=== PATIENT | female | born 1990 | race Caucasian/White ===

== ENCOUNTER 2022-07-11 10:46 | Outpatient (CLI) | payer OTHER, SELFPAY ==
--- NOTE | 2022-07-11 11:00 | CT_ITS ---
WS: [id number] CT ABDOMEN PELVIS TECHNIQUE: Noncontrast CT of the abdomen and pelvis with coronal and sagittal reformatted images. CLINICAL INFORMATION: Hematuria with Right Flank pain, COMPARISON: 8 10,015 DLP: 751.[address] scans at [facility] use at least one of these dose optimization techniques: automated e xposure control; mA and/or kV adjustment per patient size (includes targeted exams where dose is matc hed to clinical indication); or iterative reconstruction. FINDINGS: Lung bases are well aerated. Prior LEFT nephrectomy or congenital absence LEFT kidney. Mild RIGHT hyd ronephrosis with RIGHT ureterectasis. RIGHT ureter is dilated into the pelvis with a transition point to normal caliber. This is not well visualized distally. No visualized obstructing renal or ureteral calculi. This can be further evaluated with CT urogram or ureteroscopy. Enlarged heterogeneous bicornate uterus. Multifollicular ovaries RIGHT greater than LEFT. Small amoun t of free fluid in the pelvis. No evidence of high-grade small or large bowel obstruction. Appendix RIGHT lower quadrant appears dec ompressed and normal. Fat-containing umbilical hernia. Normal caliber abdominal aorta. IMPRESSION: 1. Prior LEFT nephrectomy or congenital absence LEFT kidney. 2. Mild RIGHT hydronephrosis with dilated RIGHT renal pelvis and ureter. Ureter is dilated into the pelvis with transition to normal caliber at the pelvic brim. No visualized obstructing renal or urete ral calculi. Obstruction may be due to stricture or external compression. This could be further evalu ated with CT urogram or ureteroscopy. 3. Normal appendix in RIGHT lower quadrant. No evidence of acute appendicitis. 4. Bicornuate lobulated uterus. 5. Small amount of free fluid in the pelvis. 6. No other acute findings.
== END 2022-07-11 10:47 | disposition home or self-care (01) ==
PROVIDERS: PCP Family Medicine; Visit Provider Family Medicine
DX: R31.9 Hematuria, unspecified (principal); R10.9 Unspecified abdominal pain; Z90.5 Acquired absence of kidney; N13.30 Unspecified hydronephrosis
CPT/HCPCS: 74176; 80053; 81003; 85025

== ENCOUNTER 2022-07-17 07:58 | Outpatient (CLI) | payer OTHER, SELFPAY ==
--- NOTE | 2022-07-17 08:16 | NM_ITS ---
WS: [id number] NUCLEAR MEDICINE RENAL FLOW STUDY INDICATION: RIGHT flank pain COMPARISON: CT July 11, 2022 TECHNIQUE: Nuclear medicine renal flow study with 11.6 mCi technetium 99m DTPA FINDINGS: Absent LEFT kidney. Normal GFR in the RIGHT kidney. Normal renal perfusion on the initial i maging with rapid radiotracer uptake. RIGHT hydronephrosis similar to the recent CT with dilatation R IGHT renal pelvis. Small amount of initial emptying prior to diuretic administration. Rapid emptying post diuretic demonstration with moderate retained radiotracer activity on the 30 minute images. Norm al filling of the bladder. No other suspicious findings. NM/NM renal flow w pharm [id number] IMPRESSION: 1. Absent LEFT kidney. 2. Normal GFR RIGHT kidney with normal rapid renal perfusion. 3. Persistent RIGHT hydronephrosis appears stable. 4. Rapid partial excretion post diuretic administration with moderate retained radiotracer activity on the 30 minute images. Findings compatible with incompl ete emptying. 5. Normal bladder filling post diuretic administration.
== END 2022-07-17 07:59 | disposition home or self-care (01) ==
PROVIDERS: PCP Family Medicine; Visit Provider Urology
DX: N13.30 Unspecified hydronephrosis (principal); Z90.5 Acquired absence of kidney
CPT/HCPCS: 78708; A9539; J1940

== ENCOUNTER → 2022-07-29 14:26 | Outpatient (BNVA) | payer OTHER, SELFPAY | PROVIDERS: PCP Family Medicine; Visit Provider Urology | DX: N13.30 Unspecified hydronephrosis (principal); Q60.0 Renal agenesis, unilateral | CPT/HCPCS: 81003 ==

== ENCOUNTER 2022-08-05 06:44 | Day surgery (SDC) | payer OTHER, SELFPAY ==
--- NOTE | 2022-08-02 11:36 | ANES.PREANE2 ---
Pre-Anesthetic Assessment Height/Weight: Height 1.68 m Operation Date: 08/05/22 09:30 Proposed Procedures p Cystoscopy, right, retrograde, ureteroscopy, dilation, stent [id number],[id number](Not Applicable) - Lico Cota MD s Retrograde Pyelogram(Right) - MD manuel Mendez Ureteroscopy(Right) - MD manuel Mendez Urethral Dilation(Right) - Lico Cota MD s Ureteral Stent Placement(Right) - Lico Cota MD Familial anesthetic complications: Had a high spinal - Patient had a nephrostomy tube while - for some reason she wasn't extubated post procedure and she awoke, intubated, on the bed, while being driven down the hallway. They ended up putting her on a fentanyl drip for 4 days. She also says she's woken during previous cystoscopies and watched the screen Social No alcohol and No tobacco Exam alert, oriented x 3, clear to auscultation bilaterally and regular rate & rhythm Airway Dentition: full CV/HEM high resting heart rate solitary kidney Neuropsych menierre's disease Anesthetic Plan ASA status: 2 Anesthesia: General Risk of > 500 ml blood loss (7ml/kg in children): No Medications/Allergies Home Medications Medication Instructions Recorded Confirmed Last Taken Type hydrocodone 5 mg-acetaminophen 325 1 tab PO Q6H PRN pain 5 days #20 07/11/22 08/02/22 Unknown Rx mg tablet tabs promethazine 25 mg rectal 25 mg HI Q6H PRN sedation #6 ea 07/11/22 08/02/22 Unknown Rx suppository tramadol 50 mg tablet 50 mg PO Q8H PRN pain #20 tabs 07/16/22 08/02/22 Unknown Rx ondansetron HCl 4 mg tablet 4 mg PO Q8H PRN Nausea 07/29/22 08/02/22 Unknown History Allergies Allergy/AdvReac Type Severity Reaction Status Date / Time Penicillins Allergy Severe ALGY-Anaphy Verified 07/29/22 14:32 laxis chocolate flavor Allergy Intermediate ADR-Migrain Verified 07/29/22 14:32 e codeine Allergy Intermediate ALGY-Hives Verified 07/29/22 14:32 [facility] Anesthesia Medical History Hematuria Surgical History History of History of D&C History of nephrostomy History of renal stent Family History Mother Healthy adult Father Cancer Lung Social History Smoking and tobacco status: never smoked Alcohol intake: never Adopted: No Lives independently: Yes Household members: spouse Marital status: Life Partner Current occupational status: employed History of recent travel: No Data Anesthesia Cardiac Studies: No Data to Display
[2022-08-05] VITALS (13 sets, daily range): BP systolic 102–129; BP diastolic 62–84; PULSE 58–71; RESP 16–20; TEMP 36.2–36.6; O2SAT 95–100
--- NOTE | 2022-08-05 | SCC_ITS ---
Procedure done: 1. Cystoscopy, RIGHT retrograde ureteropyelogram 2. Right ureteroscopy 3. RIGHT ureteral stent placement 63.7 seconds of fluoroscopic guidance, for a cumulative dose of 7.17 mGy, was provided to Dr. Cota by the radiology department. C-arm images of the abdomen were saved for the patient's permanent record. [facility]
--- NOTE | 2022-08-05 05:51 | P.HPUD_ITS ---
Surgery/Procedure H&P Update DATE OF PROCEDURE: August 05, 2022 DATE H&P PERFORMED: 07/29/22 H&P UPDATE INFORMATION: I have reviewed H&P completed within last 30 days, I have examined patient prior to procedure, Changes to prior documentation as noted here and H&P is in [facility] on date indicated CHANGES TO PREVIOUS DOCUMENTATION: Still having intermittent right renal colic and at times decreased urine output PLANNED PROCEDURE: Operation Date: 08/05/22 08:20 Proposed Procedures p Cystoscopy, right, retrograde, ureteroscopy, dilation, stent [id number],[id number](Not Applicable) - Lico Cota MD s Retrograde Pyelogram(Right) - MD manuel Mendez Ureteroscopy(Right) - MD manuel Mendez Urethral Dilation(Right) - Lico Cota MD s Ureteral Stent Placement(Right) - Lico Cota MD
--- NOTE | 2022-08-05 07:03 | SC_ITS ---
WS: [id number] INTRAOPERATIVE TECHNIQUE: 6 Spot fluoroscopic images for intraoperative purposes. FLUOROSCOPY TIME: 63.7 seconds CLINICAL INFORMATION: Right ureteroscopy COMPARISON: None. FINDINGS: RIGHT ureteroscopic CT with contrast injection. Moderate RIGHT hydronephrosis. Deployment of RIGHT do uble-J ureteral stent. SC/C-arm FL for Urology IMPRESSION: Images obtained for intraoperative purposes.
[2022-08-05 07:20] LABS: OR HCG Qualitative Urine Negative (Negative)
[2022-08-05] MEDS: sodium chloride 0.9% 1,000 ML 30 ML IV (07:22)
--- NOTE | 2022-08-05 08:19 | P.OP_ITS ---
Operative Report Date of procedure: August 05, 2022 Pre-op diagnosis: Right renal colicky pain with hydronephrosis/history ureteral obstruction Post-op diagnosis: Right renal colicky pain with hydronephrosis/history ureteral obstruction Procedure done: 1. Cystoscopy, RIGHT retrograde ureteropyelogram 2. Right ureteroscopy 3. RIGHT ureteral stent placement Implants: Right ureteral stent 6 Venezuelan by 28 cm double-pigtail without string Pathology: None Surgeon: Beata Estimated blood loss: None Urine output: Not measured Complications: None Findings: Anesthesia: General Condition: Stable Disposition: PACU Intraoperative findings: * Normal bladder, no left ureteral orifice * Normal-appearing right retrograde ureteropyelogram. Slightly narrowed area at the pelvic vessel crossing on the right but no distinct distinct stricture was noted on retrograde pyelogram. Dilated renal pelvis but sharp calyces noted. * Essentially normal ureteroscopy. No evidence of intrinsic narrowing such as scar tissue or any evidence of extrinsic compression. * 6 [place]an by 28 cm double-pigtail stent without string Brief History: Mackenzie is a very pleasant 32-year-old white female with a history of complicated ureteral obstruction initially identified in a solitary kidney when she was years ago. She became an uric and required a percutaneous nephrostomy tube during pregnancies. Initially there was some planning done for reconstructive surgery possibly an ileal interposition graft at [place] but ultimately follow-up imaging revealed complete resolution of the obstruction and she did well for many years. Recently she started having recurrent obstructive type symptoms again. CT scan demonstrated right hydronephrosis and hydroureter to the level of the pelvic brim without evidence of a stone. Follow-up Lasix renogram showed dilation but fairly prompt initial excretion. The impression was dilated without obstruction. Her symptoms though are very typical for what she experienced with obstruction at times she did notice decreased urine output. Based on the persistence of her symptoms and all the information described above as well as her pertinent history it was decided to proceed with cystoscopy, right retrograde ureteropyelogram, ureteroscopy, possible dilation of stricture and plan for at least a diagnostic/potentially therapeutic stent placement. The goal was to try to assess the difference in her symptoms with a stent indwelling. Procedure: After routine preoperative evaluation examination and obtaining of informed consent she was taken to the operating suite on 08/05/2022 where general anesthesia was administered without difficulty after appropriate timeout was performed, SCDs confirmed to be functioning, preoperative antibiotics administered, beta-latonya protocol confirmed. Prepped and draped in usual sterile fashion in dorsolithotomy position paying careful attention to voiding pressure points. 21 Venezuelan cystoscope with 30 degree lens was introduced into the urethra meatus and advanced into the bladder without difficulty. The bladder was systematically examined. No gross abnormality was identified. An 8 Venezuelan cone-tip catheter was intubated into the right ureteral orifice for RIGHT retrograde ureteropyelogram which demonstrated: * Essentially normal looking right ureter and pyelocalyceal system. The area in question at the crossing of the right vessels did not appear to be strictured. The ureter proximal to that point did not appear to be significantly dilated. The renal pelvis was somewhat dilated but the calyceal system demonstrated sharp calyces throughout. There was no obvious retention of contrast above the crossing of the pelvic vessels and the ureter A flexible tip guidewire was then easily advanced up the right ureter into the renal pelvis. The distal ureter was dilated with a 15 Venezuelan 10 cm balloon until no waist. Maximum pressure applied with 6 fabiola there was no evidence of any tight area that required high-pressure dilation. The balloon was deflated and removed. The scope was removed after draining the bladder and the wire was secured to the drapes as a safety wire. Offset semirigid ureteroscope was then advanced without difficulty into the ureter and the area of question was carefully inspected and there was no intrinsic narrowing or inflammation or dilation trauma or any gross abnormality. No evidence of extrinsic compression. The scope was easily passed all the way to the UPJ again with normal findings. Careful inspection as the scope was removed confirmed entry findings. The ureteroscope was removed and the cystoscope then backloaded over the safety wire and a 6 Venezuelan by 28 cm double-pigtail stent was advanced over the guidewire through the cystoscope into appropriate position easily. Fluoroscopy and cystoscopy confirmed position. Stent was confirmed to be draining and the procedure was completed after draining her bladder. She tolerated the procedure well without complications and was awakened in the operating room and returned to the PACU in stable condition. PLANS: 1. Anticipate discharge from outpatient surgery today 2. Follow-up late next week to assess impact of stent
[2022-08-05] MEDS: levofloxacin-dextrose 5 % 500 MG/100 ML PREMIX 100 MG IV (08:35)
--- NOTE | 2022-08-05 09:02 | SUR.OPER ---
0906 dr courtney injected 7ml omnipaque into right ureter.
[2022-08-05] MEDS: ondansetron 2 mg/ML SDV 2 mL 4 MG IVP ×2 (09:50→10:04)
[2022-08-05] MEDS: scopolamine 1.5 Patch 1 PATCH TRANSDERMA (10:11)
[2022-08-05] MEDS: TRAMadol 50 mg Tablet PO (10:45)
--- NOTE | 2022-08-05 15:02 | ANE.PACU2 ---
Inpatient post-anesthesia follow up: Airway intact: Yes Vital signs: Temperature 97.9 F Pulse Rate 71 Respiratory Rate 18 Blood Pressure 104/84 Pulse Oximetry 98 Oxygen Delivery Me thod Room Air Oxygen Flow Rate 6 Fraction of Inspir ed Oxygen Hydration adequate: Yes Nausea and vomiting: No Pain level: 1 Mental status: Baseline
== END 2022-08-05 11:14 | disposition home or self-care (01) ==
PROVIDERS: Anesthesiology; PCP Family Medicine; Visit Provider Urology
PROC: 0TJB8ZZ Inspection of Bladder, Via Natural or Artificial Opening Endoscopic (ICD-10-PCS; CPT 52000; principal; 2022-08-05 08:10)
PROC: (CPT 74420; 2022-08-05 08:10)
PROC: 0TJ98ZZ Inspection of Ureter, Via Natural or Artificial Opening Endoscopic (ICD-10-PCS; CPT 52351; 2022-08-05 08:10)
PROC: (CPT 52332; 2022-08-05 08:10)
PROC: (CPT 50605; 2022-08-05 08:10)
DX: N13.30 Unspecified hydronephrosis (principal); N13.5 Crossing vessel and stricture of ureter without hydronephrosis; Z90.5 Acquired absence of kidney
CPT/HCPCS: 52332; 52351; 76000; 81025; 84703; C2625; J1100; J1956; J2310; J2370; J2405; J2704; J2710; J3010; J3490; J7030

== ENCOUNTER 2022-08-09 22:52 | Observation (INO) | payer OTHER, SELFPAY ==
[2022-08-09 23:36] VITALS: BP 135/93; PULSE 117; RESP 18; TEMP 36.7; O2SAT 98; BMI 20.1
--- NOTE | 2022-08-09 23:46 | CTR_ITS ---
PROCEDURE INFORMATION: Exam: CT Abdomen And Pelvis Without Contrast Exam date and time: 08/10/2022 12:05 AM Age: 32 years old Clinical indication: Abdominal pain; Right; Prior surgery; Surgery date: 3-7 days post-operative; Surgery type: RT pigtail ureteeral stent on 08/05/2022. Csection. Nephrostomy; Patient HX: C/O severe RT flank pain post renal stent placement on 08/05/2022. ; Additional info: R flank pain TECHNIQUE: Imaging protocol: Computed tomography of the abdomen and pelvis without contrast. Radiation optimization: All CT scans at this facility use at least one of these dose optimization techniques: automated exposure control; mA and/or kV adjustment per patient size (includes targeted exams where dose is matched to clinical indication); or iterative reconstruction. COMPARISON: CT abdomen pelvis wo con [id number] 07/11/2022 11:18 AM RADIATION DOSE METRICS: Total DLP (mGy-cm): 343.63 FINDINGS: Lungs: The lung bases are clear. Liver: Unremarkable. Gallbladder and bile ducts: No definite gallbladder abnormality by CT. No biliary tree dilation. Pancreas: Unremarkable. Spleen: Unremarkable. Adrenal glands: Unremarkable. Kidneys and ureters: A right ureteral stent has been placed in the interval. The upper pigtail lies in the inferior aspect of the dilated renal pelvis, near the UPJ. The lower pigtail lies within the urinary bladder. There is moderate to severe right hydronephrosis and hydroureter, both increased in the interval. No visible renal or ureteral calculus. 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 Stomach and bowel: The stomach appears somewhat distended at the time of scanning. Please correlate clinically. No significant bowel distention. There are no CT findings to strongly suggest diverticulitis. Appendix: The appendix is visualized and appears normal. Intraperitoneal space: No free intraperitoneal air, or ascites. Vasculature: No evidence for abdominal aortic aneurysm. Lymph nodes: No retroperitoneal adenopathy. Urinary bladder: Suspect mild to moderate diffuse urinary bladder wall thickening. Evaluation is somewhat limited, as the bladder is not well distended. While nonspecific, this could indicate evidence for cystitis. Please correlate clinically. No visible calculus in the urinary bladder. 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 Small amount of cul-de-sac fluid. Suspect a dominant follicle in the left ovary, measuring 9-10 mm. No definite abnormal ovarian/adnexal cyst or mass by CT. Bones/joints: No significant acute finding. Soft tissues: Very small umbilical hernia, containing only fat. CT/CT kidney stone [id number] IMPRESSION: 1. Right ureteral stent, details above. 2. Moderate to severe right hydronephrosis and hydroureter, increased in the interval. See additional details above. 3. Suspected urinary bladder wall thickening, see above. 4. Normal appendix. 5. Somewhat distended stomach. 6. No free air or bowel distention. 7. Other findings discussed above.
[2022-08-09 23:56] LABS: Basophils % 0.4 %; Eosinophils # 0.1 10^3/uL (0.0-0.8); Eosinophils % 1.5 %; Hematocrit 36.9 % (37.0-47.0); Hemoglobin 12.4 g/dL (11.5-15.3); Lymphocytes # 3.1 10^3/uL (0.8-4.8); Lymphocytes % 33.4 %; Mean Corpuscular HGB Conc 33.6 g/dL (30.0-36.0); Mean Corpuscular Hemoglobin 30.9 pg (28.0-34.0); Mean Platelet Volume 10.8 fL (7.4-10.4); Monocytes # 0.7 10^3/uL (0.2-0.9); Monocytes % 7.9 %; Neutrophils # 5.22 10^3/uL (1.8-7.7); Neutrophils % 56.5 %; Nucleated Red Blood Cells % 0 %; Platelet Count 268 10^3/cmm (130-400); Red Blood Count 4.01 10^6/uL (4.1-5.3); Red Cell Distribution Width 12.2 % (12.1-15.1); White Blood Count 9.3 10^3/uL (4.0-10.0)
[2022-08-10] VITALS (9 sets, daily range): BP systolic 89–112; BP diastolic 46–65; PULSE 67–90; RESP 14–24; TEMP 36.7–36.8; O2SAT 96–98
[2022-08-10] MEDS: fentaNYL 50 mcg/mL INJ 2mL IVP ×2 (00:09→03:02)
[2022-08-10] MEDS: haloperidol inj 5 mg/mL INJ 1 mL 3 MG IVP (00:09)
[2022-08-10] MEDS: ondansetron 2 mg/ML SDV 2 mL 4 MG IVP ×2 (00:10→08:08)
[2022-08-10 00:23] LABS: Alanine Aminotransferase 10 U/L (0-33); Albumin Level 4.3 g/dL (3.5-5.2); Alkaline Phosphatase 50 U/L (35-105); Aspartate Amino Transferase 12 U/L (0-32); Blood Urea Nitrogen 12 mg/dL (6-20); Calcium 9.7 mg/dL (8.5-10.5); Carbon Dioxide 24 mmol/L (22-29); Chloride 103 mmol/L (98-107); Globulin 3.2 g/dL (1.3-4.6); Glucose 78 mg/dL (65-115); Osmolality Calculated 287 mOsm/kg (285-295); Sodium 139 mmol/L (136-145); Total Bilirubin 0.2 mg/dL (0.15-1.2); Total Protein 7.5 g/dL (6.6-8.7)
[2022-08-10 00:42] LABS: Glomerular Filtration Rate 71.7 mL/min (90-130)
[2022-08-10 03:38] LABS: HCG Qualitative Urine. Negative (Negative)
--- NOTE | 2022-08-10 03:50 | W.ED.FEMALGU ---
HPI - Female Genitourinary General: Chief complaint: Urogenital-Female Stated complaint: kidney stent pain Time Seen by Provider: 08/09/22 23:44 Source: patient and family History of Present Illness: 32-year-old female who has a single kidney on the right and chronic hydronephrosis. She had a stent placed 5 days ago for worsening hydronephrosis and discomfort. She did well for several days, but then began to have pain 1/2 to 2 days ago. It is increasing in frequency and in intensity. She has vomited several times this evening. No fever. No dysuria, although she notes a significant decrease in the amount of urine output she has had in the last 24 hours. MD elicited complaint: flank pain Pertinent past history: other Onset (ago): hour(s) Location of symptoms: suprapubic, RLQ, low back and flank Severity: severe Quality of pain: cramping and stabbing Consistency: intermittent Vaginal discharge: none Vaginal bleeding: none Urinary symptoms: Difficulty Urinating Associated symptoms: Reports abdominal pain and nausea; Deny headache(s) Review of Systems Const: Denies: fever(s), chills or body aches Eyes: Denies: change in vision Card: Denies: chest pain or palpitations Resp: Denies: dyspnea, productive cough, non-productive cough or wheezing GI: Reports: abdominal pain, nausea and vomiting; Denies: diarrhea or hematochezia : Reports: difficulty voiding and dribbling; Denies: dysuria Musc: Reports: back pain Skin/Breast: Denies: rash Neuro: Denies: headache(s), weakness in extremities, dizziness or confusion PFS ED PFSH: Medical History Hematuria Surgical History History of History of D&C History of nephrostomy History of renal stent Family History Mother Healthy adult Father Cancer Lung Social History Smoking and tobacco status: never smoked Alcohol intake: never Adopted: No Lives independently: Yes Household members: spouse Marital status: Life Partner Current occupational status: employed History of recent travel: No Physical Exam Const: GENERAL APPEARANCE: cooperative, in distress and ill appearing HENMT: COMMON NORMALS: normocephalic, atraumatic and Normal external nose present HEAD & SCALP: normocephalic and atraumatic FACE & SINUS: normal facial exam NOSE: Normal external nose present Eye: COMMON NORMALS: Equal, round and reactive pupils present and EOMs intact bilaterally PUPIL: Yes Equal, round and reactive pupils present Neck/C-Spine: COMMON NORMALS: full ROM GENERAL: Yes trachea midline Chest: CHEST: Yes Symmetrical chest wall rise Resp: COMMON NORMALS: normal respiratory effort, No use of accessory muscles and clear to auscultation bilaterally AUSCULTATION: clear to auscultation bilaterally Cardio: COMMON NORMALS: regular rate and regular rhythm RATE: regular rate RHYTHM: regular rhythm GI: COMMON NORMALS: Normal to inspection, nondistended, normoactive bowel sounds present PALPATION: Yes Tenderness to palpation present (GI) Details: RLQ : BLADDER/KIDNEY EXAM: Yes CVA tenderness on the right Back/Pelvis: GENERAL BACK: Yes CVA tenderness Extremity: COMMON NORMALS: no pedal edema Neuro: CHRISS COMA SCALE: document GCS findings Chriss coma scale eye opening: Spontaneous Chriss coma scale verbal response: Orientated Chriss coma scale motor response: Obey commands Brewster coma scale total score: 15 Psych: COMMON NORMALS: mental status grossly normal and cooperative Skin: COMMON NORMALS: no rashes or lesions noted GENERAL SKIN EXAM: no rashes or lesions noted Course Vital Signs: Vital signs: Vital Signs Temperature 98.1 F 08/09/22 23:36 Pulse Rate 85 08/10/22 02:42 Respiratory Rate 22 H 08/10/22 03:02 Blood Pressure 98/53 08/10/22 02:42 Pulse Oximetry 96 08/10/22 02:42 Oxygen Delivery Me thod 08/10/22 02:42 MDM - Female Medical Decision Making BMP is normal. CBC is normal. CT reveals a right ureteral stent in place with moderate to severe right hydronephrosis and hydroureter, somewhat increased since prior exam. She is required multiple doses of pain medication, and antiemetic in the ER. Spoke with urology. We will admit, he will see later this morning. Lab Data : 08/09/22 23:50 08/09/22 23:50 Radiology Impressions Abdomen/Pelvis CT 08/09/22 23:46 IMPRESSION: 1. Right ureteral stent, details above. 2. Moderate to severe right hydronephrosis and hydroureter, increased in the interval. See additional details above. 3. Suspected urinary bladder wall thickening, see above. 4. Normal appendix. 5. Somewhat distended stomach. 6. No free air or bowel distention. 7. Other findings discussed above. Laboratory Results WBC 9.3 10^3/uL (4.0-10.0) 08/09/22 23:50 RBC 4.01 10^6/uL (4.1-5.3) L 08/09/22 23:50 Hgb 12.4 g/dL (11.5-15.3) 08/09/22 23:50 Hct 36.9 % (37.0-47.0) L 08/09/22 23:50 MCV 92.0 fl (81-99) 08/09/22 23:50 MCH 30.9 pg (28.0-34.0) 08/09/22 23:50 MCHC 33.6 g/dL (30.0-36.0) 08/09/22 23:50 RDW 12.2 % (12.1-15.1) 08/09/22 23:50 Plt Count 268 10^3/cmm (130-400) 08/09/22 23:50 MPV 10.8 fL (7.4-10.4) H 08/09/22 23:50 Neut % (Auto) 56.5 % 08/09/22 23:50 Lymph % (Auto) 33.4 % 08/09/22 23:50 [place] % (Auto) 7.9 % 08/09/22 23:50 Eos % (Auto) 1.5 % 08/09/22 23:50 Baso % (Auto) 0.4 % 08/09/22 23:50 Neut # (Auto) 5.22 10^3/uL (1.8-7.7) 08/09/22 23:50 Lymph # (Auto) 3.1 10^3/uL (0.8-4.8) 08/09/22 23:50 [place] # (Auto) 0.7 10^3/uL (0.2-0.9) 08/09/22 23:50 Eos # (Auto) 0.1 10^3/uL (0.0-0.8) 08/09/22 23:50 Baso # (Auto) 0.0 10^3/uL (0.0-0.1) 08/09/22 23:50 Nucleated RBC % (auto) 0 % 08/09/22 23:50 Nucleated RBCs # 0.0 /100WBC 08/09/22 23:50 Sodium 139 mmol/L (136-145) 08/09/22 23:50 Potassium 4.0 mmol/L (3.5-5.1) 08/09/22 23:50 Chloride 103 mmol/L (98-107) 08/09/22 23:50 Carbon Dioxide 24 mmol/L (22-29) 08/09/22 23:50 Anion Gap 16.0 (5-19) 08/09/22 23:50 BUN 12 mg/dL (6-20) 08/09/22 23:50 Creatinine 0.9 mg/dL (0.5-0.9) 08/09/22 23:50 GFR Calculation 71.7 mL/min (90-130) L 08/09/22 23:50 Glucose 78 mg/dL (65-115) 08/09/22 23:50 Calculated Osmolality 287 mOsm/kg (285-295) 08/09/22 23:50 Calcium 9.7 mg/dL (8.5-10.5) 08/09/22 23:50 Total Bilirubin 0.2 mg/dL (0.15-1.2) 08/09/22 23:50 AST 12 U/L (0-32) 08/09/22 23:50 ALT 10 U/L (0-33) 08/09/22 23:50 Alkaline Phosphatase 50 U/L (35-105) 08/09/22 23:50 Total Protein 7.5 g/dL (6.6-8.7) 08/09/22 23:50 Albumin 4.3 g/dL (3.5-5.2) 08/09/22 23:50 Globulin 3.2 g/dL (1.3-4.6) 08/09/22 23:50 HCG, Qual Negative (Negative) 08/09/22 03:22 Discharge Plan Discharge Patient Disposition: Admitted As Inpatient Clinical Impression: Hydronephrosis, right, Right flank pain Condition: Stable Prescriptions: No Action hydrocodone-acetaminophen 5-325 mg tablet 1 tab PO Q6H PRN (Reason: pain) 5 Days Qty: 20 0RF promethazine 25 mg suppository 25 mg ME Q6H PRN (Reason: sedation) Qty: 6 1RF tramadol 50 mg tablet 50 mg PO Q8H PRN (Reason: pain) Qty: 20 0RF ondansetron HCl 4 mg tablet 4 mg PO Q8H PRN (Reason: Nausea) Qty: 20 1RF nitrofurantoin monohyd/m-cryst [Macrobid] 100 mg capsule 100 mg PO BID Qty: 30 1RF Rx Instructions: must administer with a meal/food Referrals: Romeo Kilgore DO [Primary Care Provider] - Coding Level of Care Code ED Chief Medical Technologist for Peggy Shukla
[2022-08-10] MEDS: HYDROmorphone 1 mg/mL INJ 1 mL 0.5 MG IVP (04:15)
[2022-08-10] MEDS: sodium chloride 0.9% 1,000 ML 75 ML IV (04:16)
--- NOTE | 2022-08-10 04:35 | PC.NURSE ---
Patient's pain 10/10 upon arrival to floor. PRN Dilaudid given. Patient now rates pain 6/10. Patient states that this is a tolerable level for now.
[2022-08-10 04:48] LABS: Bilirubin Urine Neg (Negative); Blood Urine 3+ (Negative); Glucose Urine UA Norm (Normal); Ketones Urine 1+ (Negative); Nitrate Urine Negative (Negative); Protein Urine 2+ (Negative); Urine Appearance Cloudy (CLEAR); Urine Color Yellow (Yellow); Urobilinogen Urine Neg (Negative); pH Urine 7 (5-7)
[2022-08-10 04:49] LABS: Leukocyte Esterase Urine Trace (Negative)
[2022-08-10 04:50] LABS: Add Urine Microscopic? YES
[2022-08-10 04:52] LABS: Bacteria Urine 1+ /hpf; RBC Urine TOO NUMEROUS TO CNT /hpf (0-2)
[2022-08-10 04:53] LABS: Add Urine Culture? Yes
--- NOTE | 2022-08-10 08:08 | PM.HP ---
Providers/Chief Complaint Admitting Physician: Lico Cota MD Primary Care Provider: Romeo Kilgore DO Chief Complaint: Right flank pain, hydronephrosis, severe N/V History of Present Illness Mackenzie is a very pleasant 32 year old female well-known to me for a long complicated history of right ureteral obstruction of unclear etiology. She had been evaluated in the past for obstruction and had undergone treatments of percutaneous nephrostomy during multiple ureteral stents, and a tentative plan for what sounds to be a ureteral interposition graft but ultimately had spontaneous resolution of the obstruction process prior to that intervention and did well for years after her last stent was removed after ureteroscopy which showed no evidence of intrinsic obstruction and the ureter itself looked healthy. More recently she developed increasing intermittent symptoms suspicious for recurrent right ureteral obstruction and CT scan did demonstrate moderate hydronephrosis with hydroureter down to the pelvic vessel crossing which was the location of previous obstruction. Additional work-up included a Lasix renogram which showed initially prompt excretion but some contrast retention in the kidney which was interpreted as dilated but nonobstructing. This was not interpreted though by me as a definitive answer and her symptoms still mimicked persistent obstruction. She recalled them to be very similar to what she had before. Ultimately after detailed discussion we elected to place a stent to see if it made a difference with her symptoms. On 08/05/2022 she underwent cystoscopy, right retrograde ureteropyelogram, right ureteroscopy and right ureteral stent placement (6 Serbian by 28 cm double-pigtail without string. Intraoperative findings included a fairly normal-appearing retrograde with just mild narrowing that did not appear to be clinically significant, normal ureteroscopy with easy passage of the scope, and a stent placement without difficulty. Since the stent was placed that she had had fairly immediate improvement and the pressure and fullness in her right flank that she was feeling that she associated with previous obstruction. She did develop typical lower urinary tract stent symptoms and gross hematuria associated with a stent but until yesterday had not really experienced any recurrent flank pain. Last night she had progression of right flank pain more typical for obstruction and ultimately had to present to the emergency department because of severe nausea and vomiting along with increasing right renal colic. In the emergency department a CT scan was ordered and it reflected a marked increase in right hydroureteronephrosis down to the level of the narrowing in the absence of bladder distention. No evidence of UTI or renal compromise via creatinine. She had passed some fleshy looking material with no significant change in symptoms associated with that. Most likely, the current symptoms are related to stent obstruction of unclear etiology. The material that she passed did not appear to be acute clots but may represent some sediment from longstanding upper urinary tract stasis. The ureter intraluminally looked great at time of ureteroscopy and there is no significant trauma on inspection of the ureter with withdrawal of the scope. She was offered the following: Examination under anesthesia with stent removal ureteroscopy possible stent replacement or not. Bedside cystoscopy with stent removal. We would reserve the option of intraoperative intervention with stent replacement if she has progressive and/or unremitting symptoms of obstruction. Given the lack of significant inflammatory changes at time of recent ureteroscopy I think that that is a reasonable option with low risk of ureteral compromise. After detailed explanation of benefits and risks she has elected to proceed with bedside flexible cystoscopy with stent removal. I think that is a very reasonable approach. PROCEDURE: BEDSIDE FLEXIBLE CYSTOSCOPY WITH STENT REMOVAL Prepped and draped in usual sterile fashion Flexible scope passed into the urethra under direct vision. Grasping forceps passed through the scope into the bladder. Urine was cloudy but did not require irrigation. Stent was in expected position, grasped with grasping forceps and removed without difficulty. She tolerated procedure well. Will observe over the day. If she does well we will send her home later this afternoon. Cover with antibiotics due to stasis of urine and instrumentation. Try TORADOL for pain relief at discharge. Review of Systems Const: Denies: fever(s) or chills Eyes: Denies: change in vision ENMT: Denies: hoarseness Card: Denies: chest pain Resp: Denies: dyspnea or productive cough GI: Reports: abdominal pain, nausea and vomiting : Reports: flank pain, difficulty voiding, dysuria and hematuria Skin/Breast: Denies: rash Neuro: Denies: confusion, Slurred speech present or difficulty communicating thoughts Psych: Reports: anxiety (Related to the severe pain/nausea described in HPI) Yuriy/Lymph: Denies: easy bruising or enlarged lymph nodes All/Imm: Denies: acute wheezing Medications/Allergies Home Medications Medication Instructions Recorded Confirmed Last Taken Type promethazine 25 mg rectal 25 mg PA Q6H PRN sedation #6 ea 07/11/22 08/10/22 Unknown Rx suppository ondansetron HCl 4 mg tablet 4 mg PO Q8H PRN Nausea #20 tabs 08/07/22 08/10/22 Unknown Rx tramadol 50 mg tablet 50 mg PO Q8H PRN pain #20 tabs 08/07/22 08/10/22 Unknown Rx ketorolac 10 mg tablet 10 mg PO Q8H PRN pain #10 tabs 08/10/22 Unknown Rx levofloxacin 500 mg tablet 500 mg PO DAILY #5 tabs 08/10/22 Unknown Rx Allergies Allergy/AdvReac Type Severity Reaction Status Date / Time Penicillins Allergy Severe ALGY-Anaphy Verified 08/05/22 07:01 laxis chocolate flavor Allergy Intermediate ADR-Migrain Verified 08/05/22 07:01 e codeine Allergy Intermediate ALGY-Hives Verified 08/05/22 07:01 PFSH Acute PFSH: Medical History Hematuria Surgical History History of History of D&C History of nephrostomy History of renal stent Family History Mother Healthy adult Father Cancer Lung Social History Smoking and tobacco status: never smoked Alcohol intake: never Adopted: No Lives independently: Yes Household members: spouse Marital status: Life Partner Current occupational status: employed History of recent travel: No Vitals/I&O/Wt Last Vital Signs Temp 98.1 F 08/10/22 07:54 Pulse 67 08/10/22 07:54 Resp 16 08/10/22 07:54 BP 97/64 08/10/22 07:54 Pulse Ox 98 08/10/22 07:54 O2 Del Method 08/10/22 07:54 Weight last 48 hrs Weight 125 lb Physical Exam Narrative: Alert oriented. Appears uncomfortable from nausea. HEENT: Atraumatic normocephalic Neck: Good range of motion Respiration: Unlabored, no audible wheezing, normal chest movements Abdomen: Nondistended. Soft. Extremities: Good range of motion, no edema Neurologic: No focal defects Psychiatric: Normal mentation, no confusion. Skin no obvious jaundice rashes or lesions Hematologic lymphatic: No abnormal bruising or bleeding. No groin lymphadenopathy Genitourinary: Normal external female genitalia Urethra urethra meatus normal. No pelvic floor prolapse. No vaginal discharge. No lesions Data : 08/09/22 23:50 08/09/22 23:50 CT Abd/Pel: My impression: Right ureteral obstruction at the level of the pelvic vessel crossing with severe hydroureteronephrosis proximal to that point. No other obvious abnormality identified. Bladder is not distended. Stent is in good position. A&P Assessment and plan (1) Ureteral obstruction, right: (2) Retained ureteral stent: Stent removed as above. Tolerated very well. (3) Right flank pain: (4) Hydronephrosis, right: (5) Solitary kidney, congenital: Plan 1. We will observe till early afternoon. If she is doing well with no refractory nausea vomiting or recurrent renal colic will discharge at that time 2. In-N-Out catheterization as needed. Bladder scan as needed 3. Cover with antibiotics based on instrumentation in a dilated system. 4. Follow-up to be arranged if discharged Attestations Medical Necessity Statement*: Uncontrolled renal colic, nausea vomiting. 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
[2022-08-10] MEDS: ketorolac 30 mg/mL INJ IVP (08:30)
--- NOTE | 2022-08-10 08:42 | PC.NURSE ---
This RN remained at bedside during cystoscopy with Dr. Cota.
--- NOTE | 2022-08-10 09:33 | P.DS_ITS ---
Discharge Providers Date of Admission: 08/10/22 02:38 Date of Discharge: August 10, 2022 Attending Provider at Admission: Lico Cota MD Attending Provider at Discharge: Lico Cota MD Consults: None Primary Care Provider: Romeo Kilgore DO Diagnoses at Discharge Discharge Diagnosis (1) Ureteral obstruction, right: Status: Suspected (2) Retained ureteral stent: Status: Resolved (3) Right flank pain: Status: Resolved (4) Hydronephrosis, right: Status: Acute (5) Solitary kidney, congenital: Status: Acute Reason for Visit Reason for Visit: Right flank pain, hydronephrosis, severe N/V Brief History: See HPI. In summary she was admitted for refractory right renal colic and found to have an obstructed right ureteral stent of unclear etiology. Stent was placed for chronic right ureteral obstruction and renal colicky symptoms and for several days she had significant relief of those symptoms. Over the preceding 24 hours before admission though she started having more recurrent renal colicky symptoms not typical for stent pain. Could not control her symptoms at home with appropriate use of medications. Was admitted through the emergency department for further evaluation and treatment. There was no evidence of infection. Her creatinine was good. Hospital Course Hospital Course Admitted through the emergency department. On the morning of her admission we had a good review of her options which would include removing the stent at the bedside, reexamination of the ureter with ureteroscopy under anesthesia. Ultimately she chose the former. Bedside cystoscopy was performed with stent removal without difficulty. She tolerated well. Was observed over the course of the morning and part of the afternoon and was doing well enough to be considered a good candidate for further convalescence at home and was discharged home in stable condition. Physical Exam Narrative: Alert oriented. Appears uncomfortable from nausea. Neck: Good range of motion Respiration: Unlabored, no audible wheezing, normal chest movements Abdomen: Soft, no masses Extremities: Good range of motion, no edema Neurologic: No focal defects Psychiatric: Normal mentation, no confusion. Discharge Data Studies Completed and Pending Completed Studies During Hospitalization Category Date Time Status CT kidney stone [id number] Stat Cat Scan 08/09/22 23:46 Completed Pending at discharge Category Date Time Status Urine Culture Stat Lab 08/10/22 03:22 Received Radiology Impressions Abdomen/Pelvis CT 08/09/22 23:46 IMPRESSION: 1. Right ureteral stent, details above. 2. Moderate to severe right hydronephrosis and hydroureter, increased in the interval. See additional details above. 3. Suspected urinary bladder wall thickening, see above. 4. Normal appendix. 5. Somewhat distended stomach. 6. No free air or bowel distention. 7. Other findings discussed above. Laboratory Results WBC 9.3 10^3/uL (4.0-10.0) 08/09/22 23:50 RBC 4.01 10^6/uL (4.1-5.3) L 08/09/22 23:50 Hgb 12.4 g/dL (11.5-15.3) 08/09/22 23:50 Hct 36.9 % (37.0-47.0) L 08/09/22 23:50 MCV 92.0 fl (81-99) 08/09/22 23:50 MCH 30.9 pg (28.0-34.0) 08/09/22 23:50 MCHC 33.6 g/dL (30.0-36.0) 08/09/22 23:50 RDW 12.2 % (12.1-15.1) 08/09/22 23:50 Plt Count 268 10^3/cmm (130-400) 08/09/22 23:50 MPV 10.8 fL (7.4-10.4) H 08/09/22 23:50 Neut % (Auto) 56.5 % 08/09/22 23:50 Lymph % (Auto) 33.4 % 08/09/22 23:50 [place] % (Auto) 7.9 % 08/09/22 23:50 Eos % (Auto) 1.5 % 08/09/22 23:50 Baso % (Auto) 0.4 % 08/09/22 23:50 Neut # (Auto) 5.22 10^3/uL (1.8-7.7) 08/09/22 23:50 Lymph # (Auto) 3.1 10^3/uL (0.8-4.8) 08/09/22 23:50 [place] # (Auto) 0.7 10^3/uL (0.2-0.9) 08/09/22 23:50 Eos # (Auto) 0.1 10^3/uL (0.0-0.8) 08/09/22 23:50 Baso # (Auto) 0.0 10^3/uL (0.0-0.1) 08/09/22 23:50 Nucleated RBC % (auto) 0 % 08/09/22 23:50 Nucleated RBCs # 0.0 /100WBC 08/09/22 23:50 Sodium 139 mmol/L (136-145) 08/09/22 23:50 Potassium 4.0 mmol/L (3.5-5.1) 08/09/22 23:50 Chloride 103 mmol/L (98-107) 08/09/22 23:50 Carbon Dioxide 24 mmol/L (22-29) 08/09/22 23:50 Anion Gap 16.0 (5-19) 08/09/22 23:50 BUN 12 mg/dL (6-20) 08/09/22 23:50 Creatinine 0.9 mg/dL (0.5-0.9) 08/09/22 23:50 GFR Calculation 71.7 mL/min (90-130) L 08/09/22 23:50 Glucose 78 mg/dL (65-115) 08/09/22 23:50 Calculated Osmolality 287 mOsm/kg (285-295) 08/09/22 23:50 Calcium 9.7 mg/dL (8.5-10.5) 08/09/22 23:50 Total Bilirubin 0.2 mg/dL (0.15-1.2) 08/09/22 23:50 AST 12 U/L (0-32) 08/09/22 23:50 ALT 10 U/L (0-33) 08/09/22 23:50 Alkaline Phosphatase 50 U/L (35-105) 08/09/22 23:50 Total Protein 7.5 g/dL (6.6-8.7) 08/09/22 23:50 Albumin 4.3 g/dL (3.5-5.2) 08/09/22 23:50 Globulin 3.2 g/dL (1.3-4.6) 08/09/22 23:50 HCG, Qual Negative (Negative) 08/09/22 03:22 Urine Color Yellow (Yellow) 08/10/22 03:22 Urine Appearance Cloudy (CLEAR) A 08/10/22 03:22 Urine pH 7 (5-7) 08/10/22 03:22 Ur Specific [place] 1.010 (1.005-1.030) 08/10/22 03:22 Urine Protein 2+ (Negative) H 08/10/22 03:22 Urine Glucose (UA) Norm (Normal) 08/10/22 03:22 Urine Ketones 1+ (Negative) H 08/10/22 03:22 Urine Blood 3+ (Negative) H 08/10/22 03:22 Urine Nitrate Negative (Negative) 08/10/22 03:22 Urine Bilirubin Neg (Negative) 08/10/22 03:22 Urine Urobilinogen Neg mg/dL (Negative) 08/10/22 03:22 Ur Leukocyte Esterase Trace (Negative) H 08/10/22 03:22 Urine RBC Too numerous to cnt /hpf (0-2) H 08/10/22 03:22 Urine WBC 5-10 /hpf (0-5) H 08/10/22 03:22 Ur Squamous Epith Cells None /hpf (0-5) 08/10/22 03:22 Amorphous Sediment Not Reportable 08/10/22 03:22 Urine Bacteria 1+ /hpf (NONE) H 08/10/22 03:22 Vitals Last Vital Signs Temp 98.1 F 08/10/22 07:54 Pulse 67 08/10/22 07:54 Resp 16 08/10/22 07:54 BP 97/64 08/10/22 07:54 Pulse Ox 98 08/10/22 07:54 O2 Del Method 08/10/22 07:54 Discharge Plan Discharge Patient Disposition: Home Condition: Stable Prescriptions: New ketorolac 10 mg tablet 10 mg PO Q8H PRN (Reason: pain) Qty: 10 1RF levofloxacin 500 mg tablet 500 mg PO DAILY Qty: 5 1RF Continued promethazine 25 mg suppository 25 mg SD Q6H PRN (Reason: sedation) Qty: 6 1RF tramadol 50 mg tablet 50 mg PO Q8H PRN (Reason: pain) Qty: 20 0RF ondansetron HCl 4 mg tablet 4 mg PO Q8H PRN (Reason: Nausea) Qty: 20 1RF Discharge Orders: Discharge Order (Routine); Ordered 08/10/22 Ordered By: Lico Cota Referrals: Romeo Kilgore DO [Primary Care Provider] - 1 week (please call sunday 08/12 to make a follow up appointment for one week) Lico Cota MD [Physician] - (Keep appointment as scheduled for about 3 weeks.) Discharge Diet: Advance as tolerated Discharge Activity: Increase activity as tolerated Patient Instructions: Ketorolac (By mouth), Levofloxacin (By mouth), Hydronephrosis (DC), Opioid Safety Discharge Attestations Time Spent in Discharge Care*: less than 30 min Quality Metrics Clinical Quality Measures [ No reported AMI, CVA or VTE this stay] Coding Level of Care Code Acute Chg FW DC note Diagnoses Ureteral obstruction, right N13.5 Retained ureteral stent Z96.0 Right flank pain R10.9 Hydronephrosis, right N13.30 Solitary kidney, congenital Q60.0
[2022-08-10] MEDS: levoFLOXacin 500 mg Tablet PO (10:39)
--- NOTE | 2022-08-10 14:38 | PC.NURSE ---
patient verbalized understanding of discharge instructions, home medications, and follow up. Patient declined wheelchair to main entrance and was walked out by her .
== END 2022-08-10 14:40 | disposition home or self-care (01) ==
LOC: ER 08-10 03:59 → MEDSURG 08-10 04:11
PROVIDERS: Emergency Medicine; Admitting Provider Urology; Emergency Provider Emergency Medicine; PCP Family Medicine; Visit Provider Urology
DX: N13.5 Crossing vessel and stricture of ureter without hydronephrosis (principal); Z96.0 Presence of urogenital implants; R10.9 Unspecified abdominal pain; N13.30 Unspecified hydronephrosis; Q60.0 Renal agenesis, unilateral
CPT/HCPCS: 36415; 74176; 80053; 81001; 81025; 85025; 87086; 96374; 96375; 96376; 99285; G0378; J1170; J1630; J1885; J2405; J3010; J7030

== ENCOUNTER → 2022-12-06 16:00 | Outpatient (BNVA) | payer OTHER, SELFPAY | PROVIDERS: PCP Family Medicine; Visit Provider Nurse Practitioner Women's Health | DX: N93.9 Abnormal uterine and vaginal bleeding, unspecified (principal) | CPT/HCPCS: 84443; 85025; 87624 ==

== ENCOUNTER → 2022-12-18 15:53 | Outpatient (BNVA) | payer OTHER, SELFPAY | PROVIDERS: PCP Family Medicine; Visit Provider Nurse Practitioner Women's Health | DX: N93.9 Abnormal uterine and vaginal bleeding, unspecified (principal) | CPT/HCPCS: 76830 ==

== ENCOUNTER → 2023-01-20 13:09 | Outpatient (BNVA) | payer OTHER, SELFPAY | PROVIDERS: PCP Family Medicine; Visit Provider Obstetrics & Gynecology | DX: Z01.818 Encounter for other preprocedural examination (principal); R87.610 Atypical squamous cells of undetermined significance on cytologic smear of cervix (ASC-US); R87.810 Cervical high risk human papillomavirus (HPV) DNA test positive | CPT/HCPCS: 81025; 88305 ==

== ENCOUNTER → 2023-02-13 11:51 | Outpatient (BNVA) | payer OTHER, SELFPAY | PROVIDERS: PCP Family Medicine; Visit Provider Family Medicine | DX: I73.00 Raynaud's syndrome without gangrene (principal); N13.30 Unspecified hydronephrosis; N39.0 Urinary tract infection, site not specified; N93.9 Abnormal uterine and vaginal bleeding, unspecified; Q60.0 Renal agenesis, unilateral; N30.01 Acute cystitis with hematuria | CPT/HCPCS: 80053; 81003; 85025; 85651; 86038; 86140 ==

== ENCOUNTER 2023-06-17 10:32 | Inpatient (IN) | payer OTHER, SELFPAY ==
[2023-06-09 10:41] VITALS: BMI 22.1
[2023-06-09 10:56] LABS: Basophils % 0.4 %; Eosinophils % 0.9 %; Hematocrit 35.8 % (37.0-47.0); Hemoglobin 11.8 g/dL (11.5-15.3); Lymphocytes # 1.4 10^3/uL (0.8-4.8); Lymphocytes % 31.3 %; Mean Corpuscular Hemoglobin 29.6 pg (28.0-34.0); Mean Corpuscular Volume 89.9 fl (81-99); Mean Platelet Volume 10.3 fL (7.4-10.4); Monocytes # 0.3 10^3/uL (0.2-0.9); Neutrophils # 2.77 10^3/uL (1.8-7.7); Neutrophils % 60.2 %; Nucleated Red Blood Cells % 0 %; Platelet Count 213 10^3/cmm (130-400); Red Blood Count 3.98 10^6/uL (4.1-5.3); Red Cell Distribution Width 12.4 % (12.1-15.1); White Blood Count 4.6 10^3/uL (4.0-10.0)
--- NOTE | 2023-06-09 11:05 | ANES.PREANE2 ---
Pre-Anesthetic Assessment Height/Weight: Height 1.68 m Weight 62.142 kg Operation Date: 06/17/23 11:25 Proposed Procedures p Total abdominal hysterectomy, possible right oophorectomy 89622,R10.2,N93.9,Q81.3(Not Applicable) - Meet Mchugh MD s Salpingo Oophorectomy (Open)(Not Applicable) - Meet Mchugh MD Familial anesthetic complications: PONV Was Beta Eyal taken within 24 hours: N/A Was Clonidine taken within 24 hours: N/A Social No alcohol and No tobacco Exam alert, oriented x 3, clear to auscultation bilaterally and regular rate & rhythm Airway Submandibular: within normal limits Cervical ROM: within normal limits Mallampati: Class I Dentition: full CV/HEM Anemia Single kidney (since ), multiple issues with ureteral obstruction and stents, hydronephrosis Neuropsych Anxiety and Depression Anesthetic Plan ASA status: 2 Anesthesia: General (TIVA) Medications/Allergies Home Medications Medication Instructions Recorded Confirmed Last Taken Type potassium chloride 10 mEq 10 meq PO DAILY #30 tabs 02/17/23 06/09/23 Unknown Rx tablet,extended release trazodone 50 mg tablet 50 mg PO DAILY #30 tabs 03/20/23 06/09/23 Unknown Rx buspirone 5 mg tablet 5 mg PO TID #60 tabs 05/01/23 06/09/23 Unknown Rx baclofen 10 mg tablet 10 mg PO BID PRN Pain 06/09/23 06/09/23 Unknown History Allergies Allergy/AdvReac Type Severity Reaction Status Date / Time Penicillins Allergy Severe ALGY-Anaphy Verified 06/09/23 10:39 laxis chocolate flavor Allergy Intermediate ADR-Migrain Verified 06/09/23 10:39 e codeine Allergy Intermediate ALGY-Hives Verified 06/09/23 10:39 [facility] Anesthesia Medical History Bicornate uterus Hematuria No pertinent past medical history Neghx: htn,dm,thyroid,dvt/pe PCP: Dr. Kilgore Renal colic on right side Solitary kidney, congenital Right Ureteral obstruction, right Surgical History H/O bilateral salpingectomy (~2014) History of 1)- 2008 breech presentation 2)- 2014 repeat with tubal History of D&C History of nephrostomy History of renal stent several stents--- last procedure was in [place] 12/04/22 Family History Mother Healthy adult Father Lung cancer Family/Other Breast cancer Maternal great aunt Ovarian cancer Maternal aunt Grandmother Breast cancer maternal maternal great Denies family history of Colon cancer Diabetes Heart disease Cancer Hypertension Uterine cancer Thyroid condition Stroke Hyperchloremia Data Anesthesia 06/09/23 10:45 06/09/23 10:45 Short CBC 06/09/23 Range/Units 10:45 WBC 4.6 (4.0-10.0) 10^3/uL Hgb 11.8 (11.5-15.3) g/dL Hct 35.8 L (37.0-47.0) % MCV 89.9 (81-99) fl Plt Count 213 (130-400) 10^3/cmm Neut % (Auto) 60.2 % Neut # (Auto) 2.77 (1.8-7.7) 10^3/uL Cardiac Studies: No Data to Display
[2023-06-09 11:20] LABS: Anion Gap 13.2 (5-19); Blood Urea Nitrogen 12 mg/dL (6-20); Calcium 9.1 mg/dL (8.5-10.5); Carbon Dioxide 25 mmol/L (22-29); Chloride 105 mmol/L (98-107); Glomerular Filtration Rate 81.6 mL/min (90-130); Glucose 84 mg/dL (65-115); Osmolality Calculated 285 mOsm/kg (285-295); Potassium 5.2 mmol/L (3.5-5.1); Sodium 138 mmol/L (136-145)
[2023-06-17] VITALS (28 sets, daily range): BP systolic 87–115; BP diastolic 35–77; PULSE 48–86; RESP 16–21; TEMP 36.1–36.7; O2SAT 94–100; BMI 22.1
[2023-06-17] MEDS: sodium chloride 0.9% 500 ML IV (06:42)
[2023-06-17] MEDS: scopolamine 1.5 Patch 1 PATCH TRANSDERMA (06:42)
[2023-06-17] MEDS: vancomycin 1,000 MG in sodium chloride 0.9% 250 ML 250 MG IV ×2 (06:43→14:29)
[2023-06-17] MEDS: sodium chloride 0.9% 1,000 ML 30 ML IV (06:43)
[2023-06-17 06:45] LABS: Basophils % 0.4 %; Eosinophils # 0.1 10^3/uL (0.0-0.8); Eosinophils % 1.3 %; Hematocrit 34.8 % (36-47); Lymphocytes # 1.6 10^3/uL (0.8-4.8); Lymphocytes % 30.7 %; Mean Corpuscular HGB Conc 33.3 g/dL (30-55); Mean Corpuscular Hemoglobin 29.7 pg (27-33); Mean Corpuscular Volume 89.2 fl (85-98); Monocytes # 0.5 10^3/uL (0.2-0.9); Monocytes % 8.6 %; Neutrophils # 3.09 10^3/uL (1.8-7.7); Nucleated Red Blood Cells % 0 %; Platelet Count 222 10^3/cmm (157-399); Red Cell Distribution Width 12.5 % (12.1-15.1); White Blood Count 5.24 10^3/uL (3.29-11.43)
--- NOTE | 2023-06-17 06:50 | P.ANESUD_ITS ---
Pre-Anesthetic Update Pre-Anesthetic Assessment: Date of Surgery/Procedure: 06/17/23 Preop Anila gnosis: Chronic pelvic pain, abnormal uterine bleeding, dyspareunia Proposed Procedure: Operation Date: 06/17/23 07:00 Proposed Procedures p Total abdominal hysterectomy, possible right oophorectomy 05753,R10.2,N93.9,Q81.3(Not Applicable) - Meet Mchugh MD s Salpingo Oophorectomy (Open)(Not Applicable) - Meet Mchugh MD Any changes to Pre-Anesthetic Assessment?: No Last Intake: Intake Last Liquid Date 06/16/23 Last Liquid Time 18:00 Last Solid Date 06/16/23 Last Solid Time 18:00 Labs Last 48hrs: Short CBC 06/17/23 Range/Units 06:30 WBC 5.24 (3.29-11.43) 10^ 3/uL Hgb 11.60 (11.27-16.99) g/ dL Hct 34.8 L (36-47) % MCV 89.2 (85-98) fl Plt Count 222 (157-399) 10^3/c mm Neut % (Auto) 59.0 % Neut # (Auto) 3.09 (1.8-7.7) 10^3/u L Vitals: Temperature 97.8 F 06/17/23 06:13 Temperature Source Temporal Artery S can 06/17/23 06:13 Pulse Rate 77 06/17/23 06:13 Respiratory Rate 16 06/17/23 06:13 Blood Pressure 115/74 06/17/23 06:13 Blood Pressure Lisbet n 87 06/17/23 06:13 Pulse Oximetry 100 06/17/23 06:13 Oxygen Delivery Me thod Room Air 06/17/23 06:15 Exam: Pre-Anes Outpt Exam: alert, oriented x 3, clear to auscultation bilaterally and regular rate & rhythm Cardiac Studies: No Data to Display
--- NOTE | 2023-06-17 06:51 | W.PM.OPSUD ---
Surgery/Procedure H&P Update DATE OF PROCEDURE: June 17, 2023 DATE H&P PERFORMED: 06/06/23 H&P UPDATE INFORMATION: I have reviewed H&P completed within last 30 days, I have examined patient prior to procedure and No changes to prior documentation PREOP DIAGNOSIS: Chronic pelvic pain, abnormal uterine bleeding, dyspareunia PLANNED PROCEDURE: Operation Date: 06/17/23 07:00 Proposed Procedures p Total abdominal hysterectomy, possible right oophorectomy 44968,R10.2,N93.9,Q81.3(Not Applicable) - Meet Mchugh MD s Salpingo Oophorectomy (Open)(Not Applicable) - Meet Mchugh MD
[2023-06-17 06:55] LABS: OR HCG Qualitative Urine Negative (Negative)
[2023-06-17 06:57] LABS: Alanine Aminotransferase 10 U/L (0-33); Albumin Level 4.4 g/dL (3.5-5.2); Alkaline Phosphatase 40 U/L (35-105); Aspartate Amino Transferase 15 U/L (0-32); Blood Urea Nitrogen 14 mg/dL (6-20); Calcium 8.8 mg/dL (8.5-10.5); Carbon Dioxide 26 mmol/L (22-29); Chloride 104 mmol/L (98-107); Globulin 2.5 g/dL (1.3-4.6); Glomerular Filtration Rate 81.6 mL/min (90-130); Glucose 84 mg/dL (65-115); Osmolality Calculated 286 mOsm/kg (285-295); Sodium 138 mmol/L (136-145); Total Bilirubin 0.6 mg/dL (0.15-1.2); Total Protein 6.9 g/dL (6.6-8.7)
[2023-06-17] MEDS: levofloxacin-dextrose 5 % 500 MG/100 ML PREMIX 100 MG IV (07:06)
[2023-06-17] MEDS: sodium chloride 0.9% 100 mL Bag XX (08:08)
[2023-06-17] MEDS: BUPivacaine 0.25% INJ 30 mL INJECTION (08:08)
[2023-06-17] MEDS: BUPivacaine liposome 13.3 mg/mL SDV 10 mL 266 MG INFILTRATI (08:10)
--- NOTE | 2023-06-17 10:14 | PM.OP ---
Operative Report Date of procedure: June 17, 2023 Pre-op diagnosis: Preop Diagnosis Chronic pelvic pain, abnormal uterine bleeding, dyspareunia Post-op diagnosis: Same as stanislav Post-op findings: Multiple pelvic adhesions, Vaginal septum Procedure done: Total abdominal hysterectomy with right salpingo-oophorectomy. Lysis of adhesions Specimens removed/disposition: Bicornuate uterus Right ovary and fallopian tube Surgeon: Meet Mchugh MD Estimated blood loss (mL): 800 IV fluids (mL): 2,000 Urine output (mL): 200 Complications: Multiple adhesions, bleeding Findings: Bicornuate uterus Vaginal septum Multiple pelvic adhesions Brief History: Mrs. Sutton 33-year-old female G4, P4 with a bicornuate uterus history of chronic pelvic pain dyspareunia and abnormal uterine bleeding. Procedure: The patient was taken to the operating room, and after adequate level of general anesthesia was achieved, the patient was placed in the Trendelenburg position, prepped and draped in the usual sterile fashion. Subsequently, a Pfannenstiel incision was made and the incision was taken down to the fascia. The fascia was opened up sharply. The fascia was extended to the length of the incision using the Wagoner scissors. At this time, the rectus muscles were dissected from the fascia superiorly and inferiorly to the symphysis pubis. The midline rectus muscles were opened sharply and extended superiorly and inferiorly. The peritoneum was visualized, grasped, opened sharply, and extended superiorly and inferiorly towards the bladder. The abdominal contents were packed superiorly away from the operative site using the lap packs. At this time, the pelvic organs were noted. The inferior and superior blades were placed in place on the Sathya self-retaining retractor. Bowel was packed away from the operative site. The fundus of the uterus was then grasped with a triple-tooth tenaculum and retracted out of the pelvic cavity into the abdominal site. At this point, Carrie clamps were placed in both right and left adnexal regions. Subsequently, using the LigaSure cautery unit, the round ligaments were grasped, cauterized, and dissected. The bladder flap was then formed and the bladder flap was pushed away down anteriorly over the lower uterine segment, pushed away from the operative site on both the right and left sides. Subsequently, the posterior leaf of the broad ligament was opened sharply and the LigaSure instrument was then placed below the level of the ovary in both the right and left side, care being taken not to damage bowel or uterus and the infundibulopelvic ligament was then grasped, cauterized, and again dissected. Further dissection of the broad ligament was carried down posteriorly towards the uterine vessels. The bladder was pushed inferiorly down towards the vagina. Subsequently, the uterine vessels were then grasped again with the LigaSure machine, cauterized, and dissected. The cardinal ligaments were further grasped, dissected, and suture ligated, again with the LigaSure machine. At that point, the LigaSure machine instrument was stopped and straight Zeppelin clamps were used on the cardinal ligaments down towards the uterosacral ligaments. The cardinal ligaments were grasped, dissected with a scalpel and then ligated with transfixion sutures with #1 Vicryl suture down to the uterosacral ligaments. The uterosacral ligaments were grasped, dissected, and suture ligated again with #1 Vicryl suture and transfixion sutures. At that time, the bladder had been pushed over the vagina and at this time right-angle Zeppelin clamps were placed on the vagina at the level of the cervix, and using the Horace scissors, the cervix was dissected away from the vagina. A vaginal septum was noted. Bludigo (indigo carmine) was given IV. At this time, the vaginal cuff was then closed using interrupted sutures of #1 Vicryl suture from the midline to each lateral corner. After the good hemostasis had been achieved in the vaginal cuff, both the right and left adnexa was visualized and no more bleeding was noted. The cuff was intact with no bleeding noted. The bladder was visualized and no bleeding was noted. Surgicel was then placed over the vaginal cuff. The Sathya self-retaining retractor was removed as well as the anterior and inferior blades. The lap packs were removed, and at this time, general closure of the abdomen was carried out. The peritoneum was closed with a 2-0 Vicryl suture and continuous running suture. The fascia was closed using a #1 Vicryl suture from each corner to the midline. Subcutaneous adipose tissue was infiltrated with Exparel for pain management. Subcutaneous tissue was cauterized. No bleeding was noted. The Proctor cath bag was noted with blue/green urine. The subcutaneous tissue was then reapproximated using plain sutures and interrupted sutures, and the skin was closed using Insorb absorbable subcuticular abhijit. The patient tolerated the procedure well and was transferred to the recovery room in excellent condition. The patient returned to the floor for recovery.
[2023-06-17 10:47] LABS: Hematocrit 29.7 % (36-47)
[2023-06-17 11:59] LABS: ABG PCO2 39.8 mmHg (35-45); ABG PH Result 7.32 (7.35-7.45); Arterial Blood Gas Hematocrit 32.1 % (37-47); Base Excess ABG -5.2 mmol/L (-2.0-2.0); Blood Gas Allen Test Pos; Blood Gas Operator Identificat WALCI; Blood Gas Sample Site Radial, left; Blood Gas Sample Type Arterial; Carboxyhemoglobin 0.9 %THgb (0.4-20.1); HCO3 ABG 20.5 mmol/L (22-26); HGB O2 Sat 98.1 % (95-100); Ionized Calcium Level - ABG 1.2 mmol/L (1.1-1.4); Methemoglobin < 0.0 % (0.4-1.5); Oxygen Device ROOM AIR; Oxygen Saturation ABG 98.8; Potassium Level - ABG 4.1 mmol/L (3.5-5.0); Total Hemoglobin 10.5 g/dL (12-16)
--- NOTE | 2023-06-17 12:45 | ANE.PACU2 ---
Inpatient post-anesthesia follow up: Airway intact: Yes Vital signs: Temperature 97 F Pulse Rate 49 Respiratory Rate 21 Blood Pressure 110/57 Pulse Oximetry 98 Oxygen Delivery Me thod Room Air Oxygen Flow Rate 6 Fraction of Inspir ed Oxygen Hydration adequate: Yes Nausea and vomiting: No Pain level: 1 Mental status: Baseline Additional Comments: prolonged awakening from TIVA in recovery
[2023-06-17] MEDS: ketorolac 30 mg/mL INJ IVP ×2 (12:59→19:36)
[2023-06-17] MEDS: BuSPIRONE 10 mg Tablet 5 MG PO ×2 (14:28→21:01)
[2023-06-17] MEDS: dextrose 5%-lactated ringers 1,000 ML 125 ML IV (14:33)
[2023-06-17] MEDS: fentaNYL 50 mcg/mL INJ 2mL IVP (15:54)
[2023-06-17] MEDS: docusate sodium 100 mg Capsule PO (19:36)
[2023-06-18] MEDS: dextrose 5%-lactated ringers 1,000 ML 125 ML IV (01:43)
[2023-06-18] MEDS: ketorolac 30 mg/mL INJ IVP (01:43)
[2023-06-18] MEDS: vancomycin 1,000 MG in sodium chloride 0.9% 250 ML 250 MG IV (02:57)
[2023-06-18 05:57] LABS: Hematocrit 24.5 % (36-47); Mean Corpuscular HGB Conc 33.5 g/dL (30-55); Mean Corpuscular Hemoglobin 30.3 pg (27-33); Mean Corpuscular Volume 90.4 fl (85-98); Platelet Count 164 10^3/cmm (157-399); Red Blood Count 2.71 10^6/uL (3.85-5.65); Red Cell Distribution Width 12.5 % (12.1-15.1); White Blood Count 11.25 10^3/uL (3.29-11.43)
[2023-06-18 06:42] VITALS: BP 101/63; PULSE 61; RESP 16; TEMP 36.8
--- NOTE | 2023-06-18 07:39 | P.DS_ITS ---
Discharge Providers MAIL PROCESSING EQUIPMENT MECHANIC Date of Admission: 06/17/23 10:32 Date of Discharge: 06/18/23 Attending Provider at Admission: Meet Mchugh MD Attending Provider at Discharge: Meet Mchugh MD Primary MAIL PROCESSING EQUIPMENT MECHANIC: Meet Mchugh MD Primary Care Provider: Romeo Kilgore DO Reason for Visit Reason for Visit: Surgery Hospital Course Hospital Course Mrs. Sutton 33-year-old female with a history of bicornuate uterus, chronic pelvic pain. Due to renal malformation she was advised by urologist to have a hysterectomy and right oophorectomy before fixing right ureter. She was admitted for planned total abdominal hysterectomy with right salpingo- oophorectomy which was performed without complications. Overnight observation was uneventful. Tolerating diet well. Ambulating without difficulty. She is afebrile and hemodynamically stable postoperative day 1. She was counseled regarding pelvic rest for 6 weeks (no sex, no tampons, no vaginal douches). Return to the emergency room if any fever, increased bleeding or pain. Physical Exam Narrative: GA: Alert and oriented ?3. HEENT: WNL. Heart: Regular rate and rhythm. Lungs: Clear to auscultation bilaterally. Abdomen: Bowel sounds present, nontender, minimal tenderness, incision clean and dry, no redness, pain or edema. AGRICULTURAL LENDER: No bleeding. Extremities: No edema, no cyanosis, no calves pain. Urinary Catheter Management: Proctor: Cath Placed During This Visit: yes Urinary Catheter Date of Insertion: 06/17/23 Urinary Catheter Time of Insertion: 07:15 History History History 8 Term 4 1 Miscarriages/Ectopic 3 Living Children 4 Discharge Data Studies Completed and Pending Pending at discharge Category Date Time Status Pathology: Surgical [PTH] Routine Pth 06/17/23 10:04 Received Laboratory Results WBC 11.25 10^3/uL (3.29-11.43) 06/18/23 05:49 RBC 2.71 10^6/uL (3.85-5.65) L 06/18/23 05:49 Hgb 8.20 g/dL (11.27-16.99) L 06/18/23 05:49 Hct 24.5 % (36-47) L 06/18/23 05:49 MCV 90.4 fl (85-98) 06/18/23 05:49 MCH 30.3 pg (27-33) 06/18/23 05:49 MCHC 33.5 g/dL (30-55) 06/18/23 05:49 RDW 12.5 % (12.1-15.1) 06/18/23 05:49 Plt Count 164 10^3/cmm (157-399) 06/18/23 05:49 MPV 11.0 fL (7.4-10.4) H 06/18/23 05:49 Neut % (Auto) 59.0 % 06/17/23 06:30 Lymph % (Auto) 30.7 % 06/17/23 06:30 [place] % (Auto) 8.6 % 06/17/23 06:30 Eos % (Auto) 1.3 % 06/17/23 06:30 Baso % (Auto) 0.4 % 06/17/23 06:30 Neut # (Auto) 3.09 10^3/uL (1.8-7.7) 06/17/23 06:30 Lymph # (Auto) 1.6 10^3/uL (0.8-4.8) 06/17/23 06:30 [place] # (Auto) 0.5 10^3/uL (0.2-0.9) 06/17/23 06:30 Eos # (Auto) 0.1 10^3/uL (0.0-0.8) 06/17/23 06:30 Baso # (Auto) 0.0 10^3/uL (0.0-0.1) 06/17/23 06:30 Nucleated RBC % (auto) 0 % 06/17/23 06:30 Nucleated RBCs # 0.0 /100WBC 06/17/23 06:30 Specimen Type Arterial 06/17/23 11:48 Sample Site Radial, left 06/17/23 11:48 ABG pH 7.32 (7.35-7.45) L 06/17/23 11:48 ABG pCO2 39.8 mmHg (35-45) 06/17/23 11:48 ABG pO2 102.0 mmHg (80.0-100.0) H 06/17/23 11:48 ABG HCO3 20.5 mmol/L (22-26) L 06/17/23 11:48 ABG O2 Saturation 98.8 06/17/23 11:48 ABG Base Excess -5.2 mmol/L (-2.0-2.0) L 06/17/23 11:48 Anthony Test Pos 06/17/23 11:48 A-a O2 Gradient Not Reportable 06/17/23 11:48 Hematocrit 32.1 % (37-47) L 06/17/23 11:48 Hgb O2 Saturation 98.1 % (95-100) 06/17/23 11:48 Carboxyhemoglobin 0.9 %THgb (0.4-20.1) 06/17/23 11:48 Methemoglobin < 0.0 % (0.4-1.5) L 06/17/23 11:48 Total Hemoglobin 10.5 g/dL (12-16) L 06/17/23 11:48 Sodium 136.0 mmol/L (131-143) 06/17/23 11:48 Potassium 4.1 mmol/L (3.5-5.0) 06/17/23 11:48 Glucose 100.0 mg/dL (70-115) 06/17/23 11:48 Ionized Calcium 1.2 mmol/L (1.1-1.4) 06/17/23 11:48 O2 Delivery Device Room air 06/17/23 11:48 FiO2 21.0 % 06/17/23 11:48 Water Treatment Plant Operator ID [place] 06/17/23 11:48 Sodium 138 mmol/L (136-145) 06/17/23 06:28 Potassium 4.0 mmol/L (3.5-5.1) 06/17/23 06:28 Chloride 104 mmol/L (98-107) 06/17/23 06:28 Carbon Dioxide 26 mmol/L (22-29) 06/17/23 06:28 Anion Gap 12.0 (5-19) 06/17/23 06:28 BUN 14 mg/dL (6-20) 06/17/23 06:28 Creatinine 0.8 mg/dL (0.5-0.9) 06/17/23 06:28 GFR Calculation 81.6 mL/min (90-130) L 06/17/23 06:28 Glucose 84 mg/dL (65-115) 06/17/23 06:28 Calculated Osmolality 286 mOsm/kg (285-295) 06/17/23 06:28 Calcium 8.8 mg/dL (8.5-10.5) 06/17/23 06:28 Total Bilirubin 0.6 mg/dL (0.15-1.2) 06/17/23 06:28 AST 15 U/L (0-32) 06/17/23 06:28 ALT 10 U/L (0-33) 06/17/23 06:28 Alkaline Phosphatase 40 U/L (35-105) 06/17/23 06:28 Total Protein 6.9 g/dL (6.6-8.7) 06/17/23 06:28 Albumin 4.4 g/dL (3.5-5.2) 06/17/23 06:28 Globulin 2.5 g/dL (1.3-4.6) 06/17/23 06:28 Urine HCG, Qual Negative (Negative) 06/17/23 06:01 Blood Type O Positive 06/17/23 06:27 Rho(D) Type Positive 06/17/23 06:27 Antibody Screen Negative 06/17/23 06:27 Vitals Last Vital Signs Temp 98.3 F 06/18/23 06:42 Pulse 61 06/18/23 06:42 Resp 16 06/18/23 06:42 BP 101/63 06/18/23 06:42 Pulse Ox 98 06/17/23 23:00 O2 Del Method Room Air 06/17/23 23:00 O2 Flow Rate 6 06/17/23 10:50 Discharge Plan Discharge Patient Disposition: Home Condition: Stable Prescriptions: New hydrocodone-acetaminophen 5-325 mg tablet 1 tab PO Q4H PRN (Reason: pain) Qty: 30 0RF docusate sodium [Colace] 100 mg capsule 100 mg PO BID Qty: 60 0RF ibuprofen 800 mg tablet 800 mg PO TID PRN (Reason: pain) Qty: 60 0RF acetaminophen 325 mg capsule 325 mg PO Q4H PRN (Reason: fever or pain) Qty: 60 0RF ferrous sulfate [Iron (ferrous sulfate)] 325 mg (65 mg iron) tablet 325 mg PO BID Qty: 60 1RF Continued baclofen 10 mg tablet 10 mg PO BID PRN (Reason: Pain) Qty: 60 2RF buspirone 5 mg tablet 5 mg PO TID Qty: 60 11RF trazodone 50 mg tablet 50 mg PO DAILY Qty: 30 5RF Discharge Orders: Discharge Order (Routine); Ordered 06/18/23 Ordered By: Meet Mchugh Discharge Diet: GI Soft Discharge Activity: Limit activity as instructed Patient Instructions: Opioid Safety, Hysterectomy (GEN) Activity Restrictions/Additional Instructions: 1. Please call [facility] on next working day to make your post-operative appointment in 2 weeks. 2. Please stay home until you come back to the clinic on first post- hospatilization check up. 3. Please follow instructions on your medications CAREFULLY. 4. If you have abdominal incision, do not cover it unless dressing is necessary because of drainage. OK to shower, but avoid bath. Leave steri-strips until they fall off. If they are still on one week after surgery, you may remove them. 5. If you had vaginal surgery or vaginal repair, Dr. Mchugh may instruct you to take SITZ bath. 6. Yellow, blood tinged odorous vaginal discharge is usually normal after hysterectomy or vaginal surgeries. 7. No SEXUAL INTERCOURSE, tampons, or douches until you are completely released from the post-operative care. 8. Avoid constipation by eating right and maybe using some Metamucil or Milk of Magnesia. 9. All prescription refills are given during the working hours. Please do no wait till it runs out. Call the clinic at [phone] before your medication runs out. The clinic will get in touch with your doctor to prescribe medications if necessary. 10. Please remain within 40 mile radius from our hospital because emergencies do happen now and then during the post-operative period. 11. If you have stairs at home, take one step at a time slowly and minimize the number of trips. It helps to stay in one floor for the next few days. No lifting except what you can lift by one hand until you are released from the post-operative care. 12. Driving is discouraged until you are well healed. It may be 3-4 weeks before you feel strong enough to drive. You should be able to turn and look through the rear window without pain and you should be able to push the brake pedal very hard without pain before you drive. No fast rules, but SAFETY should be your primary concern. DO NOT drive if you are on sedating medications such as narcotics. 13. Call the clinic (during working hours) to make urgent appointment or go to the Emergency room, if any of the following occurs: i. Vaginal bleeding becomes heavy, more than a period. ii. Incision becomes red and sore, or drains pus. iii. Your TEMPERATURE is over 100.4F or you have chill. iv. IV site becomes red and swollen (a little ``knot?? is usually OK) v. Persistent nausea and vomiting vi. Persistent constipation or diarrhea vii. Rash or allergic reaction to medications. Discharge Attestations MAIL PROCESSING EQUIPMENT MECHANIC Time Spent in Discharge Care*: greater than 30 min Coding Level of Care Code Acute Code for Chg Fwd Diagnoses
[2023-06-18] MEDS: ibuprofen 800 mg tablet PO (09:32)
[2023-06-18] MEDS: docusate sodium 100 mg Capsule PO (09:32)
[2023-06-18 09:35] VITALS: BP 90/53; PULSE 63; RESP 16; TEMP 36.8; O2SAT 100
== END 2023-06-18 09:43 | disposition home or self-care (01) | DRG 743 ==
LOC: OBGYN 06-18 07:42
PROVIDERS: Anesthesiology; Admitting Provider Obstetrics & Gynecology; PCP Family Medicine; Visit Provider Obstetrics & Gynecology
PROC: 0UT90ZZ Resection of Uterus, Open Approach (ICD-10-PCS; CPT 58150; principal; 2023-06-17 07:00)
PROC: 0UT90ZZ Resection of Uterus, Open Approach (ICD-10-PCS; CPT 58720; 2023-06-17 07:00)
DX: N93.8 Other specified abnormal uterine and vaginal bleeding (principal); R10.2 Pelvic and perineal pain; N94.10 Unspecified dyspareunia; N73.6 Female pelvic peritoneal adhesions (postinfective); Q52.10 Doubling of vagina, unspecified
CPT/HCPCS: 36415; 36600; 51702; 80048; 80051; 80053; 81025; 82330; 82805; 84703; 85014; 85018; 85025; 85027; 86850; 86900; 88307; 96374; 96376; C9290; J0131; J1100; J1170; J1200; J1885; J1940; J1956; J2250; J2371; J2405; J2704; J3010; J3370; J3490; J7030; J7040; J7050; J7121; Q9968

== ENCOUNTER → 2023-07-04 12:10 | Outpatient (BNVA) | payer OTHER, SELFPAY | PROVIDERS: PCP Family Medicine; Visit Provider Nurse Practitioner Women's Health | DX: D64.9 Anemia, unspecified (principal); R35.0 Frequency of micturition; Z48.816 Encounter for surgical aftercare following surgery on the genitourinary system | CPT/HCPCS: 81000; 85025; 87086 ==

== ENCOUNTER → 2023-07-24 11:44 | Outpatient (BNVA) | payer OTHER, SELFPAY | PROVIDERS: PCP Family Medicine; Visit Provider Family Medicine | DX: F41.0 Panic disorder [episodic paroxysmal anxiety] (principal); F41.1 Generalized anxiety disorder; G47.00 Insomnia, unspecified; I73.89 Other specified peripheral vascular diseases; I95.1 Orthostatic hypotension; R53.82 Chronic fatigue, unspecified | CPT/HCPCS: 80053; 82533; 82672; 84144; 84443; 84550; 85027; 86038; 86140; 86592 ==

== ENCOUNTER 2023-09-04 09:45 | Observation (INO) | payer OTHER, SELFPAY ==
[2023-09-04] VITALS (45 sets, daily range): BP systolic 75–127; BP diastolic 38–88; PULSE 59–87; RESP 12–26; TEMP 36.6; O2SAT 77–100; BMI 21.7; BMI 22.1
--- NOTE | 2023-09-04 09:48 | ECG_ITS ---
[facility] Test Date: 2023-09-04 Pat Name: Mackenzie Paula Department: Room: Gender: Female Payroll Administrator: : [id number] Requested By: Luke Flores Order Number: [id number] Raciel MD: Ifeanyi Jacobson M.D. Measurements Intervals [place] Rate: 79 P: 79 CA: 150 QRS: 81 QRSD: 96 T: 76 QT: 367 QTc: 421 Interpretive Statements SINUS RHYTHM WITH SINUS ARRHYTHMIA MODERATE ST DEPRESSION [0.05+ mV ST DEPRESSION] No previous ECG available for comparison Electronically Signed On 09-05-2023 14:11:38 CERTIFIED PESTICIDE APPLICATOR by Ifeanyi Jacobson M.D. [email or web address] [email or web address] Propaneohio state university wexner medical [id number]
--- NOTE | 2023-09-04 09:49 | CT_ITS ---
WS: [id number] CT HEAD TECHNIQUE: Noncontrast CT of the head obtained from the skullbase to the vertex. CLINICAL INFORMATION: SYMPTOMS OF ACUTE STROKE COMPARISON: MRI 2016 DLP: [address] scans [address] [facility] use at least one of these dose optimization techniques: automated e xposure control; mA and/or kV adjustment per patient size (includes targeted exams where dose is matc hed to clinical indication); or iterative reconstruction. FINDINGS: No evidence of intracranial hemorrhage or mass effect. Ventricular system and basal cisterns are enciso nt. No extra-axial fluid collections. No evidence of mass or mass effect. Normal [place]-white different iation. Paranasal sinuses and mastoid air cells are well aerated. .Normal visualized soft tissues. IMPRESSION: 1. No evidence of intracranial hemorrhage or mass effect. 2. No acute intracranial findings. Notified Luke Cuevas DO at 09/04/2023 10:01 AM.
--- NOTE | 2023-09-04 09:57 | W.ED.NEUROSD ---
HPI - Neuro Symptoms/Deficit General: Chief Complaint: Neuro Symptoms/Deficit Stated Complaint: Stroke like sym. 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 She became confused had right-sided weakness and had dysarthria and mild aphasia. She was came in as a stroke alert. She is also complaining of a headache. Dr. Wilburn consulted at the bedside seen and patient concurred with treatment see below Onset (ago): hour(s) Last Observed Normal: 07:00 Quality: weak Relieving factors: none Exacerbating factors: none On Anticoagulants: No Associated symptoms: Deny chest pain, cough, diaphoresis, fevers/chills, headache(s), anorexia, malaise, nausea, seizures, short of breath, syncope, tingling, vertigo, vomiting or weakness Review of Systems Const: Denies: malaise or diaphoresis Card: Denies: chest pain or syncope Resp: Denies: dyspnea GI: Denies: nausea or vomiting : Denies: dysuria, urinary frequency or urinary urgency Musc: Denies: neck pain or back pain Skin/Breast: Denies: rash Neuro: Denies: headache(s) or vertigo [facility] ED PFSH: Medical History 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 Kilgore Renal colic on right side Solitary kidney, congenital Right Ureteral obstruction, right Surgical History H/O bilateral salpingectomy (~2014) History of 1)- 2008 breech presentation 2)- 2014 repeat with tubal History of D&C History of hysterectomy (~06/17/23) RUPERT, RSO, ERIKA due to CPP, AUB, Dyspareunia. Performed by Jeison at [facility] [place]. Benign pathology. Bicornuate uterus,vaginal septum, multiple pelvic adhesions present. History of nephrostomy History of renal stent several stents--- last procedure was in [place] 12/04/22 Family History Mother Healthy adult Father Lung cancer Family/Other Breast cancer Maternal great aunt Ovarian cancer Maternal aunt Grandmother Breast cancer maternal maternal great Denies family history of Colon cancer Diabetes Heart disease Cancer Hypertension Uterine cancer Thyroid disease Stroke Hyperchloremia Social History Smoking and tobacco/nicotine status: never used tobacco/nicotine Alcohol intake: never NIH stroke score NIHSS: Level Of Consciousness - 1a: 0 Level Of Consciousness Questions - 1b: Both Correct Level Of Consciousness Commands - 1c: Both Correct Best Gaze - 2: Normal Visual [place] - 3: Partial Hemianopia Facial Palsy - 4: Minor Paralysis Motor Arm Right - 5: Drift Motor Arm Left - 5: No Drift Motor Leg Right - 6: Drift Motor Leg Left - 6: No Drift Limb Ataxia - 7: Present In One Limb Sensory - 8: Mild To Moderate Loss Best Language - 9: Mild/Moderate Aphasia Dysarthia - 10: Normal Extinction And Inattention - 11: 0 Score: Total Score: 7 Physical Exam Const: COMMON NORMALS: no acute distress GENERAL APPEARANCE: cooperative and comfortable ORIENTATION/CONSCIOUSNESS: Yes awake, Yes oriented to person, Yes oriented to place and Yes oriented to time HENMT: COMMON NORMALS: normocephalic, atraumatic and hearing grossly normal bilaterally HEAD & SCALP: normocephalic and atraumatic Resp: COMMON NORMALS: normal respiratory effort, No retractions, No use of accessory muscles and clear to auscultation bilaterally AUSCULTATION: clear to auscultation bilaterally Cardio: COMMON NORMALS: regular rate, regular rhythm and No murmurs present (Cardio) RATE: regular rate RHYTHM: regular rhythm GI: COMMON NORMALS: Soft to palpation and No hepatosplenomegaly present AUSCULTATION: Yes normoactive bowel sounds PALPATION: Yes Soft to palpation, No Tenderness to palpation present (GI), No Guarding due to palpation present (GI) and Yes No hepatosplenomegaly present Extremity: COMMON NORMALS: normal to inspection, capillary refill normal, no clubbing, cyanosis or edema, no calf tenderness and no pedal edema Neuro: SENSORIUM/ORIENTATION: Yes oriented to person, Yes oriented to place and Yes oriented to time Skin: COMMON NORMALS: no rashes or lesions noted GENERAL SKIN EXAM: no rashes or lesions noted Course Vital Signs: Vital signs: Vital Signs Temperature 98.3 F 09/05/23 11:25 Pulse Rate 86 09/05/23 11:25 Respiratory Rate 16 09/05/23 11:25 Blood Pressure 108/75 09/05/23 11:25 Pulse Oximetry 96 09/05/23 11:25 Oxygen Delivery Me thod Room Air 09/05/23 10:21 MDM - Neuro Symptoms/Deficit Medical Decision Making NIH score of 7. I was concerned this may be a migraine variant but discussed Dr. Wilburn we both concurred at this point we should offer patient treatment patient agreed to go forward with the TNKase. Patient tolerated well and showing some improvement while in the emergency room of her symptoms. We will admit monitor and get appropriate further work-up and advanced imaging. Discussed with hospitalist orders written Medical Records I reviewed the patient's medical records. Lab Data I reviewed the patient's lab results. 09/05/23 10:30 09/05/23 10:30 Laboratory Results WBC 4.95 10^3/uL (3.29-11.43) 09/04/23 10:30 RBC 3.91 10^6/uL (3.85-5.65) 09/04/23 10:30 Hgb 11.00 g/dL (11.27-16.99) L 09/04/23 10:30 Hct 35.1 % (36-47) L 09/04/23 10:30 MCV 89.8 fl (85-98) 09/04/23 10:30 MCH 28.1 pg (27-33) 09/04/23 10:30 MCHC 31.3 g/dL (30-55) 09/04/23 10:30 RDW 13.6 % (12.1-15.1) 09/04/23 10:30 Plt Count 209 10^3/cmm (157-399) 09/04/23 10:30 MPV 10.6 fL (7.4-10.4) H 09/04/23 10:30 Neut % (Auto) 66.3 % 09/04/23 10:30 Lymph % (Auto) 21.8 % 09/04/23 10:30 [place] % (Auto) 9.7 % 09/04/23 10:30 Eos % (Auto) 1.6 % 09/04/23 10:30 Baso % (Auto) 0.4 % 09/04/23 10:30 Neut # (Auto) 3.28 10^3/uL (1.8-7.7) 09/04/23 10:30 Lymph # (Auto) 1.1 10^3/uL (0.8-4.8) 09/04/23 10:30 [place]entry # (Auto) 0.5 10^3/uL (0.2-0.9) 09/04/23 10:30 Eos # (Auto) 0.1 10^3/uL (0.0-0.8) 09/04/23 10:30 Baso # (Auto) 0.0 10^3/uL (0.0-0.1) 09/04/23 10:30 Nucleated RBC % (auto) 0 % 09/04/23 10:30 Nucleated RBCs # 0.0 /100WBC 09/04/23 10:30 PT 16.20 SECONDS (12.1-14.9) H 09/04/23 10:30 INR 1.26 (0.8-1.2) H 09/04/23 10:30 APTT 31.9 SECONDS (23.9-36.7) 09/04/23 10:30 Sodium 137 mmol/L (136-145) 09/04/23 10:30 Potassium 4.0 mmol/L (3.5-5.1) 09/04/23 10:30 Chloride 104 mmol/L (98-107) 09/04/23 10:30 Carbon Dioxide 23 mmol/L (22-29) 09/04/23 10:30 Anion Gap 14.0 (5-19) 09/04/23 10:30 BUN 9 mg/dL (6-20) 09/04/23 10:30 Creatinine 0.9 mg/dL (0.5-0.9) 09/04/23 10:30 GFR Calculation 71.3 mL/min (90-130) L 09/04/23 10:30 Glucose 90 mg/dL (65-115) 09/04/23 10:30 POC Glucose 76 mg/dL (70-110) 09/04/23 10:06 Estimat Average Glucose 88 09/04/23 10:30 Hemoglobin A1c 4.7 % (4.0-6.0) 09/04/23 10:30 Calculated Osmolality 282 mOsm/kg (285-295) L 09/04/23 10:30 Calcium 8.7 mg/dL (8.5-10.5) 09/04/23 10:30 Total Bilirubin 0.3 mg/dL (0.15-1.2) 09/04/23 10:30 AST 13 U/L (0-32) 09/04/23 10:30 ALT 8 U/L (0-33) 09/04/23 10:30 Alkaline Phosphatase 42 U/L (35-105) 09/04/23 10:30 Total Protein 6.6 g/dL (6.6-8.7) 09/04/23 10:30 Albumin 4.0 g/dL (3.5-5.2) 09/04/23 10:30 Globulin 2.6 g/dL (1.3-4.6) 09/04/23 10:30 Procalcitonin 0.03 ng/mL (0-0.5) 09/04/23 10:30 HCG, Qual Negative (Negative) 09/04/23 10:30 Urine Color Yellow (Yellow) 09/04/23 11:02 Urine Appearance Sl hazy (CLEAR) A 09/04/23 11:02 Urine pH 6 (5-7) 09/04/23 11:02 Ur Specific [place] 1.010 (1.005-1.030) 09/04/23 11:02 Urine Protein Neg (Negative) 09/04/23 11:02 Urine Glucose (UA) Norm (Normal) 09/04/23 11:02 Urine Ketones Negative (Negative) 09/04/23 11:02 Urine Blood Trace (Negative) H 09/04/23 11:02 Urine Nitrate Positive (Negative) H 09/04/23 11:02 Urine Bilirubin Neg (Negative) 09/04/23 11:02 Urine Urobilinogen Norm mg/dL (Negative) 09/04/23 11:02 Ur Leukocyte Esterase 1+ (Negative) H 09/04/23 11:02 Urine RBC 0-4 /hpf (0-2) H 09/04/23 11:02 Urine WBC 0-4 /hpf (0-5) H 09/04/23 11:02 Ur Squamous Epith Cells 0-4 /hpf (0-5) H 09/04/23 11:02 Amorphous Sediment Trace /hpf 09/04/23 11:02 Urine Bacteria Trace /hpf (NONE) 09/04/23 11:02 Urine Mucus 1+ /hpf 09/04/23 11:02 Urine Opiates Screen Negative ng/mL (Negative) 09/04/23 11:02 Ur Barbiturates Screen Negative ng/mL (Negative) 09/04/23 11:02 Ur Phencyclidine Scrn Negative ng/mL (Negative) 09/04/23 11:02 Ur Amphetamines Screen Negative ng/mL (Negative) 09/04/23 11:02 U Benzodiazepines Scrn Negative ng/mL (Negative) 09/04/23 11:02 Urine Cocaine Screen Negative ng/mL (Negative) 09/04/23 11:02 U Marijuana (THC) Screen Negative ng/mL (Negative) 09/04/23 11:02 All radiology interpretation(s) finalized by discharge Discharge Plan Discharge Patient Disposition: Admitted As Inpatient Admit Provider: Leo Dalton Clinical Impression: Cerebrovascular accident Condition: Stable Coding Level of Care Code ED Graduate Recruiter for Peggy Shukla
[2023-09-04] MEDS: tenecteplase 50mg Kit (STROKE) 50 MG (10:07)
--- NOTE | 2023-09-04 10:23 | CT_ITS ---
WS: [id number] CTA HEAD AND NECK TECHNIQUE: Contrast enhanced CTA of the head and neck with coronal and sagittal reformatted images an d maximum intensity projection (MIP) images. NASCET criteria utilized. CLINICAL INFORMATION: Acute CVA COMPARISON: None. DLP: 390.[address] scans at [facility] use at least one of these dose optimization techniques: automated e xposure control; mA and/or kV adjustment per patient size (includes targeted exams where dose is matc hed to clinical indication); or iterative reconstruction. FINDINGS: RIGHT: RIGHT common carotid artery is patent. No significant RIGHT ICA stenosis. RIGHT ICA is patent to the skull base. LEFT: LEFT common carotid artery is patent. No significant LEFT ICA stenosis. LEFT ICA is patent to t he skull base. RIGHT dominant vertebral artery. Both vertebral arteries are patent to the basilar junction. Normal vascularity to the COMMERCIAL [employer] territory bilaterally. Both ICAs are patent at the skull base. Normal vascularity to the KRUPA and MCA territories bilaterally . No evidence of proximal flow-limiting stenosis or aneurysm. Tiny LEFT thyroid nodule IMPRESSION: Normal head and neck CTA Notified Luke Cuevas DO at 09/04/2023 11:50 AM.
[2023-09-04 10:38] LABS: Basophils % 0.4 %; Eosinophils # 0.1 10^3/uL (0.0-0.8); Eosinophils % 1.6 %; Hematocrit 35.1 % (36-47); Lymphocytes # 1.1 10^3/uL (0.8-4.8); Lymphocytes % 21.8 %; Mean Corpuscular HGB Conc 31.3 g/dL (30-55); Mean Corpuscular Hemoglobin 28.1 pg (27-33); Mean Corpuscular Volume 89.8 fl (85-98); Mean Platelet Volume 10.6 fL (7.4-10.4); Monocytes # 0.5 10^3/uL (0.2-0.9); Monocytes % 9.7 %; Neutrophils # 3.28 10^3/uL (1.8-7.7); Neutrophils % 66.3 %; Nucleated Red Blood Cells % 0 %; Platelet Count 209 10^3/cmm (157-399); Red Blood Count 3.91 10^6/uL (3.85-5.65); Red Cell Distribution Width 13.6 % (12.1-15.1); White Blood Count 4.95 10^3/uL (3.29-11.43)
[2023-09-04 10:38] LABS: Glucose Point of Care 76 mg/dL (70-110)
[2023-09-04 11:06] LABS: Alanine Aminotransferase 8 U/L (0-33); Alkaline Phosphatase 42 U/L (35-105); Aspartate Amino Transferase 13 U/L (0-32); Blood Urea Nitrogen 9 mg/dL (6-20); Calcium 8.7 mg/dL (8.5-10.5); Carbon Dioxide 23 mmol/L (22-29); Chloride 104 mmol/L (98-107); Globulin 2.6 g/dL (1.3-4.6); Glomerular Filtration Rate 71.3 mL/min (90-130); Glucose 90 mg/dL (65-115); INR 1.26 (0.8-1.2); Osmolality Calculated 282 mOsm/kg (285-295); Partial Thromboplastin Time 31.9 SECONDS (23.9-36.7); Sodium 137 mmol/L (136-145); Total Bilirubin 0.3 mg/dL (0.15-1.2); Total Protein 6.6 g/dL (6.6-8.7)
[2023-09-04] MEDS: iohexol 350 mg/mL 500 mL Btl (per mL) IV (11:09)
[2023-09-04 11:27] LABS: Add Urine Microscopic? YES; Bilirubin Urine Neg (Negative); Blood Urine Trace (Negative); Glucose Urine UA Norm (Normal); Ketones Urine Negative (Negative); Leukocyte Esterase Urine 1+ (Negative); Nitrate Urine Positive (Negative); Protein Urine Neg (Negative); Urine Appearance SL Hazy (CLEAR); Urine Color Yellow (Yellow); Urobilinogen Urine Norm (Negative); pH Urine 6 (5-7)
[2023-09-04 11:28] LABS: Amphetamines Screen Urine Negative (Negative); Barbiturates Screen Urine Negative (Negative); Benzodiazepines Screen Urine Negative (Negative); Cocaine Screen Urine Negative (Negative); Opiate Screen Urine Negative (Negative); PCP Screen Urine Negative (Negative); THC Screen Urine Negative (Negative)
[2023-09-04] MEDS: valproic acid inj 500 MG in sodium chloride 0.9% 50 ML 55 MG IV (11:35)
[2023-09-04 11:42] LABS: RBC Urine 0-4 /hpf (0-2); WBC Urine 0-4 /hpf (0-5)
[2023-09-04 11:43] LABS: Amorphous Sediment Urine TRACE /hpf; Bacteria Urine TRACE /hpf; Mucus Urine 1+ /hpf; Squamous Epithelial Cell Urine 0-4 /hpf (0-5)
[2023-09-04 11:44] LABS: HCG, Serum Qual Negative (Negative)
[2023-09-04 11:44] LABS: Add Urine Culture? Yes
--- NOTE | 2023-09-04 12:19 | P.HP_ITS ---
Providers/Chief Complaint Admitting Physician: Leo Dalton MD Primary Care Provider: Romeo Kilgore DO Chief Complaint: Stroke like sym. History of Present Illness Mackenzie Paula is a 33 year old female who upon awakening from sleep felt like her right leg was numb. She states she was able to get her kids to school, and ambulate. She also had a headache. related that she had a headache last night as well. While driving to work she felt like the discomfort went into her arm, and perhaps her neck and face. She felt like she was weaker on this side, and had some slurred speech. She was told at work she had some confusion, and was sent to the emergency department. She reports the vision on the right side was blurry. She denied any nausea, sweating. Blood sugar on testing here was 76. In the emergency department a stroke alert was called, she was assessed and given TNKase. By the time I evaluated her she reported her vision was slightly blurry, she had a little bit of right-sided numbness and weakness but it was much improved. She denied any confusion, significant headache, or speech difficulty. She feels a little tired. She has been under quite a bit of family stress lately. She denies any substance or alcohol use. She reports this is never happened before. She does have a past history of headaches. In the emergency department she received TNKase, and an infusion of Depakote. Review of Systems General: Reports: 10 or more systems reviewed and unremarkable except in HPI and below Card: Denies: chest pain Resp: Denies: dyspnea GI: Denies: abdominal pain Medications/Allergies Home Medications Medication Instructions Recorded Confirmed Last Taken Type baclofen 10 mg tablet 10 mg PO BID PRN Pain #60 tabs 06/11/23 09/04/23 Unknown Rx buspirone 5 mg tablet 5 mg PO TID #60 tabs 06/11/23 09/04/23 09/03/23 Rx acetaminophen 325 mg capsule 325 mg PO Q4H PRN fever or pain 06/18/23 09/04/23 Unknown Rx #60 caps docusate sodium 100 mg capsule 100 mg PO BID Constipation #60 caps 06/18/23 09/04/23 Unknown Rx (Colace) ferrous sulfate 325 mg (65 mg 325 mg PO BID Anemia #60 tabs 06/18/23 09/04/2309/03/23 Rx iron) tablet (Iron (ferrous sulfate)) alprazolam 0.25 mg tablet 0.25 mg PO DAILY #30 tabs 08/26/23 09/04/23 09/03/23 Rx trazodone 50 mg tablet 50 mg PO QPM 09/04/23 09/04/23 09/03/23 History Allergies Allergy/AdvReac Type Severity Reaction Status Date / Time Penicillins Allergy Severe ALGY-Anaphy Verified 07/28/23 13:11 laxis chocolate flavor Allergy Intermediate ADR-Migrain Verified 07/28/23 13:11 e codeine Allergy Intermediate ALGY-Hives Verified 07/28/23 13:11 PFSH Acute PFSH: Medical History 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 Kilgore Renal colic on right side Solitary kidney, congenital Right Ureteral obstruction, right Surgical History H/O bilateral salpingectomy (~2014) History of 1)- 2008 breech presentation 2)- 2014 repeat with tubal History of D&C History of hysterectomy (~06/17/23) RUPERT, RSO, ERIKA due to CPP, AUB, Dyspareunia. Performed by Jeison at [facility]. Benign pathology. Bicornuate uterus,vaginal septum, multiple pelvic adhesions present. History of nephrostomy History of renal stent several stents--- last procedure was in [place] 12/04/22 Family History Mother Healthy adult Father Lung cancer Family/Other Breast cancer Maternal great aunt Ovarian cancer Maternal aunt Grandmother Breast cancer maternal maternal great Denies family history of Colon cancer Diabetes Heart disease Cancer Hypertension Uterine cancer Thyroid disease Stroke Hyperchloremia Social History (Updated 09/04/23 @ 12:22 by Leo Dalton MD) Smoking and tobacco/nicotine status: never used tobacco/nicotine Alcohol intake: never Vitals/I&O/Wt Last Vital Signs Temp 97.8 F 09/04/23 10:37 Pulse 87 11/16/23 12:05 Resp 18 09/04/23 12:05 BP 99/64 09/04/23 12:05 Pulse Ox 81 L 09/04/23 12:05 O2 Del Method Room Air 09/04/23 10:26 Weight last 48 hrs Weight 62.142 kg Weight 61.235 kg Physical Exam Narrative: General exam demonstrates a conversive and pleasant female in no distress HEENT: Atraumatic and normocephalic. Oropharynx is clear. Pupils equally round. Extraocular movements are intact. Neck is supple no lymphadenopathy thyromegaly Cardiovascular regular rate and rhythm without murmur, no S3 or S4 Lungs clear no wheezing or crackles Abdomen is soft with positive bowel sounds. No obvious organomegaly exam was deferred Extremities no cyanosis clubbing or edema, cap refill brisk Skin no rash Neuro: Only deficit that is present currently appears to be slightly less strength in the right upper extremity and right lower extremity, perhaps 5/6. She has noted extinction, cerebellar signs, visual field defects. No facial droop, slurred speech. Data 09/04/23 10:30 09/04/23 10:30 Other Labs: INR is 1.26 hCG negative LFTs normal Calcium, albumin normal Urinalysis 0-4 reds 0-4 whites Urine drug screen negative Recent TSH normal CT head which I reviewed no acute changes Head and neck CTA, normal per read I have ordered a chest x-ray which is pending EKG demonstrates sinus rhythm, normal axis, nonspecific ST-T wave changes, baseline artifact A&P Assessment and plan (1) Hemiparesis: Patient presented with stroke symptoms of confusion, difficulty speaking, right hemiparesis Decision was made to give TNKase, which the patient has received. She is currently improving. Lipid profile, A1c in the morning Hydration Therapy evaluation No initiation of aspirin, antiplatelets, anticoagulants until greater than 24 hours following TNKase Monitor on telemetry Check echocardiogram Check TSH Appreciate neurology consultation in the emergency department Repeat CT tomorrow (2) Headache: Patient indicates past history of severe headaches including migraine. Cannot completely rule out migraine cause of hemiparesis. She has received a dose of Depacon. (3) Solitary kidney, congenital: Avoid renal toxic medication Plan History of underlying anxiety. Continue home medications Full code Anticoagulants contraindicated as she has received tPA. Attestations Medical Necessity Statement*: Will require less than 2 midnight stay for evaluation and treatment of right hemiparesis. Coding Level of Care Code Acute Code for Chg Fwd Diagnoses Hemiparesis G81.90 Headache R51.9 Solitary kidney, congenital Q60.0
--- NOTE | 2023-09-04 12:25 | XR_ITS ---
WS: [id number] Exam: XR chest 1V portable [id number] Date/Time of Exam: 09/04/2023 12:25 PM Reason For Exam: cva No priors. The lungs are fully expanded and clear. Normal cardiomediastinal silhouette. Bony structures appear n ormal. Bilaterally symmetrical nodular densities over the lower lung zones are nipple shadows. IMPRESSION: 1. Normal chest.
[2023-09-04] MEDS: sodium chloride 0.9% 1,000 ML 100 ML IV ×2 (13:00→23:14)
[2023-09-04] MEDS: BuSPIRONE 10 mg Tablet 5 MG PO ×2 (14:20→20:44)
--- NOTE | 2023-09-04 20:03 | PC.NURSE ---
Baclofen: Pt requesting her home dose of Baclofen. Contacted Dr. Aguero [email or web address]. New order for 10mg Baclofen PO QID PRN for Pain.
[2023-09-04] MEDS: baclofen 10 mg Tablet PO (20:43)
[2023-09-04] MEDS: atorvastatin 40 mg Tablet PO (20:43)
[2023-09-04] MEDS: trazodone 50 mg Tablet PO (20:43)
--- NOTE | 2023-09-04 23:09 | PC.NURSE ---
Low BP: Low BP on monitor, checked BP w/ manual cuff. BP 90/50. Notified Dr. Aguero @[id number]. No new orders at this time.
[2023-09-05] VITALS (19 sets, daily range): BP systolic 75–108; BP diastolic 35–75; PULSE 55–86; RESP 13–19; TEMP 36.6–36.9; O2SAT 95–100
[2023-09-05] MEDS: sodium chloride 0.9% 1,000 ML 999 ML IV (00:03)
--- NOTE | 2023-09-05 06:00 | USCV_ITS ---
Mackenzie Paula Age: 33 Gender: F : 1990 Exam Date: 09/05/2023 02:41 Ordering Phys: Leo Dalton MD Technologist: TOVA Exam Location: [facility] – [place] Indication: stroke-like symptoms, normal CTA, normal head CT BP: 91 / 47 HR: 73 Rhythm: Sinus Technical Quality: Adequate MEASUREMENTS (Male / Female) Normal Values 2D ECHO LV Diastolic Diameter PLAX 3.8 cm 4.2 - 5.9 / 3.9 - 5.3 cm LV Systolic Diameter PLAX 2.2 cm IVS Diastolic Thickness 0.8 cm 0.6 - 1.0 / 0.6 - 0.9 cm IVS Systolic Thickness 1.2 cm LVPW Diastolic Thickness 0.8 cm 0.6 - 1.0 / 0.6 - 0.9 cm LVPW Systolic Thickness 1.0 cm LVOT Diameter 1.5 cm LV Ejection Fraction 2D Teich 72.9 % LV Ejection Fraction MOD 2C 56.6 % LV Ejection Fraction 2C AL 56.5 % LA Diameter 3.1 cm LA Width 2.8 cm LA Height 5.3 cm RA Width 3.4 cm RA Height 4.7 cm Aorta at Sinotubular Diameter 2.3 cm IVC Diameter 2.5 cm M-MODE Aortic Annulus Diameter 2.5 cm LA Ao Ratio MM 1.3 MV E Point Septal Separation 0.5 cm DOPPLER AV Peak Velocity 108.0 cm/s LVOT Peak Velocity 87.0 cm/s AV Area Cont Eq vti 1.2 cm squared AV Area Cont Eq pk 1.5 cm squared MV Area PHT 5.1 cm squared Mitral E to A Ratio 2.4 MV E' Velocity 66.5 cm/s Mitral E to MV E' Ratio 6.2 Mitral E to LV E' Lateral Ratio 5.3 Mitral E to LV E' Septal Ratio 7.5 TR Peak Velocity 203.3 cm/s TR Peak Gradient 16.5 mmHg TV Peak E Velocity 74.0 cm/s Right Atrial Pressure 5.0 mmHg Pulmonary Artery Systolic Pressu 21.5 mmHg PV Peak Velocity 88.0 cm/s RV Acceleration Time 0.1 s RV Ejection Time 0.4 s RV AcT/ET 0.2 FINDINGS Left Ventricle Normal left ventricular size, systolic function and wall thickness, with no regional wall motion abnormalities. Normal left ventricular wall thickness. Normal diastolic filling pattern. Left ventricular ejection fraction is estimated at 60 %. Right Ventricle The right ventricle is normal in size and function. Right Atrium The right atrium is normal in size. Left Atrium The left atrium is normal in size. Mitral Valve Structurally normal mitral valve without significant stenosis or prolapse. There is no mitral regurgitation. Aortic Valve Structurally normal aortic valve without significant sclerosis or stenosis. There is no aortic regurgitation. Tricuspid Valve Structurally normal tricuspid valve without significant stenosis or regurgitation. Pulmonary artery systolic pressure is normal. Pulmonic Valve Structurally normal pulmonic valve without significant stenosis. There is no pulmonic regurgitation. Pericardium Normal pericardium without effusion. Aorta Normal ascending aorta dimension. IVC The inferior vena cava appears normal. CONCLUSIONS Normal transthoracic echocardiogram. There are no prior echocardiogram studies to compare. Dr. Ifeanyi Jacobson MD (Electronically Signed) Final Date: 05 September 2023 13:35 S
--- NOTE | 2023-09-05 08:13 | MR_ITS ---
WS: [id number] MRI BRAIN WITHOUT CONTRAST HISTORY: stroke COMPARISON: 01/05/2016 TECHNIQUE: Diffusion imaging, multiplanar T1, T2 and FLAIR imaging obtained. No evidence for acute infarct or hemorrhage. Vaz-white matter differentiation is normal. No remote or acute infarcts are volume loss. Ventricles and extra-axial spaces are normal. No inferior displacement of cerebellar tonsils. The sella turcica and pituitary gland are unremarkabl e. Dural venous sinuses and [place] demonstrate no abnormality on this unenhanced studies. Paranasal sinuses: Clear. Mastoid air cells: Normal. Calvarium and scalp: Intact. IMPRESSION: 1. Unremarkable MRI brain. 2. Normal diffusion imaging. No infarct. No atrophy.
--- NOTE | 2023-09-05 08:18 | P.PNCC_ITS ---
Stroke Alert Activation ED Arrival Date: 09/04/23 ED Arrival Time: 09:16 Last Known Normal/at Baseline: 2-3 hours ago Other Last Known Well Infomation: I was called stat for stroke team at . I talked with the secretary office clerk at the [facility] desk who notified me that Dr. Landers was with the patient and requested my presence. I came immediately to the emergency department and Dr. Landers and I evaluated the patient again together and observed that she had tremulous movements on the right side with right-sided motor weakness in the arm and leg. She had nonreproducible visual field deficit. Her stroke scale score was 6. She experienced acute onset of symptoms at 0700 and the time of my evaluation was around 930. 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 Landers and I agreed that TNK was indicated. Her blood sugar was within normal range and blood pressure was not elevated. TNK was administered at 1007. I was present for TNK administration and also ordered Depacon because the patient was complaining of headache. Stroke Alert Activated by: Dr. Cuevas Stroke Alert Activation Time: :54 Stroke MD @ Bedside Time: 10:00 NIH Stroke Scale Time: 10:00 NIH stroke score NIHSS: Level Of Consciousness - 1a: 1 Level Of Consciousness Questions - 1b: Both Correct Level Of Consciousness Commands - 1c: Both Correct Best Gaze - 2: Normal Visual [place] - 3: Partial Hemianopia Facial Palsy - 4: Normal Motor Arm Right - 5: Drift Motor Arm Left - 5: No Drift Motor Leg Right - 6: Drift Motor Leg Left - 6: No Drift Limb Ataxia - 7: Present In Two Limbs Sensory - 8: Mild To Moderate Loss Best Language - 9: No Aphasia Dysarthia - 10: Normal Extinction And Inattention - 11: 0 Score: Total Score: 7 Stroke Alert Data/Treatment Time to CT of Head: 09:49 CT Results Time: 10:04 CT Impression: Normal CT head. Stroke Risk Factors: depression tPA Started Time: tPA Started - Time: 10:07 tPA Admin Prior to Arrival: No Patient & Family Educated on: tPA Risks/Benefits (TNK) Standardized Stroke Orders Used: Yes Other Information: I talked with Dr. Landers prior to leaving the unit and agreed that she should receive a CT angiogram. I later talked with Dr. Dalton and conferred with him about the plan. Critical Care Time Critical Care Time: 30 - 74 mins Additional information about critical care time: 45 min A&P Assessment and plan (1) Hemiparesis: Hemiparesis of acute onset in a patient with no clear risk factors for stroke but with history of daily throbbing severe headaches suggesting chronic migraine. She had tremulous movements on the right side consistent with ataxia. I suspect this is migraine related rather than cerebral ischemia of embolic source but current recommendations favor treatment and we agreed on TNK. The patient gave informed consent. (2) Chronic migraine without aura, intractable, with status migrainosus: Her chronic migraine will need to be addressed. Coding Level of Care Code Acute Code for [facility] Fwd Diagnoses Hemiparesis G81.90 Chronic migraine without aura, intractable, with status migrainosus G43.711
[2023-09-05] MEDS: ALPRAZolam 0.5 mg Tablet 0.25 MG PO (10:13)
[2023-09-05] MEDS: ciprofloxacin 500 mg Tablet PO (10:14)
[2023-09-05 10:41] LABS: Basophils % 0.5 %; Eosinophils # 0.1 10^3/uL (0.0-0.8); Eosinophils % 1.5 %; Hematocrit 36.7 % (36-47); Lymphocytes # 1.4 10^3/uL (0.8-4.8); Lymphocytes % 22.4 %; Mean Corpuscular HGB Conc 29.7 g/dL (30-55); Mean Corpuscular Hemoglobin 27.9 pg (27-33); Mean Corpuscular Volume 94.1 fl (85-98); Mean Platelet Volume 10.5 fL (7.4-10.4); Monocytes # 0.4 10^3/uL (0.2-0.9); Monocytes % 6.8 %; Neutrophils # 4.12 10^3/uL (1.8-7.7); Neutrophils % 68.5 %; Nucleated Red Blood Cells % 0 %; Platelet Count 201 10^3/cmm (157-399); Red Cell Distribution Width 13.6 % (12.1-15.1); White Blood Count 6.02 10^3/uL (3.29-11.43)
[2023-09-05 10:43] LABS: Procalcitonin 0.03 ng/mL (0-0.5)
[2023-09-05 10:56] LABS: Albumin Level 3.7 g/dL (3.5-5.2); Blood Urea Nitrogen 5 mg/dL (6-20); Calcium 8.2 mg/dL (8.5-10.5); Carbon Dioxide 20 mmol/L (22-29); Chloride 108 mmol/L (98-107); Chol HDL Ratio 2.37 mg/dL (0.0-4.40); Cholesterol 102 mg/dL (0-200); Glomerular Filtration Rate 95.2 mL/min (90-130); Glucose 68 mg/dL (65-115); HDL Cholesterol 43 mg/dL (60-100); LDL Cholesterol Calculated 50 mg/dL (50-129); LDL HDL Ratio 1.16 RATIO (0.00-3.22); Lactate (Lactic Acid level) 1.2 mmol/L (0.5-2.2); Phosphorus 2.3 mg/dL (2.5-4.5); Sodium 136 mmol/L (136-145); Triglycerides 43 mg/dL (0-150)
--- NOTE | 2023-09-05 10:58 | P.DS_ITS ---
Discharge Providers Date of Admission: 09/04/23 11:56 Date of Discharge: September 05, 2023 Attending Provider at Admission: Leo Dalton MD Attending Provider at Discharge: Leo Dalton MD Primary Care Provider: Romeo Kilgore DO Diagnoses at Discharge Discharge Diagnosis (1) Hemiparesis: Status: Acute (2) Chronic migraine without aura, intractable, with status migrainosus: Status: Acute Reason for Visit Reason for Visit: Stroke like sym. Hospital Course Hospital Course Mackenzie is a 33-year-old white female who presented to the hospital with complaints of right hemiparesis, headache. She was seen by neurology, and decision was made to give her TNKase which she received. She also has a history of migraine headaches and chronic headache, so this was a possible cause and she received Depacon IV. With these treatments, she had improvement in her symptomatology. The next day symptoms lingered and strength was slightly less on the right side. MRI was performed which did not demonstrate any bleeding, and did not demonstrate any significant abnormality. Topamax was added to her regimen. She will take low-dose aspirin, statin, Topamax and be reevaluated by neurology and her primary care provider. She was also placed on a short course of Cipro for an abnormal urine considering her history of 1 kidney and hydronephrosis. She was able to ask questions, and agreed with the plan. Physical Exam Narrative: General exam no distress Neck is supple Cardiovascular regular rate and rhythm Lungs clear Abdomen is soft Extremities no cyanosis clubbing or edema Discharge Data Studies Completed and Pending Completed Studies During Hospitalization Category Date Time Status CT head thrombolytic [id number] Stat Cat Scan 09/04/23 09:49 Completed CTA head neck [CT angio headneck* [id number]] Stat Cat Scan 09/04/23 10:23 Completed XR chest 1V portable [id number] Routine Exams 09/04/23 12:25 Completed MR head wo con* [id number] Stat MRI 09/05/23 08:13 Completed Pending at discharge Category Date Time Status Hemoglobin A1C AM LABS Lab 09/05/23 04:00 Received Urine Culture Stat Lab 09/04/23 11:02 Received CV. echo complete* [id number] Routine Ultrasound 09/05/23 06:00 Taken Laboratory Results WBC 6.02 10^3/uL (3.29-11.43) 09/05/23 10:30 RBC 3.90 10^6/uL (3.85-5.65) 09/05/23 10:30 Hgb 10.90 g/dL (11.27-16.99) L 09/05/23 10:30 Hct 36.7 % (36-47) 09/05/23 10:30 MCV 94.1 fl (85-98) 09/05/23 10:30 MCH 27.9 pg (27-33) 09/05/23 10:30 MCHC 29.7 g/dL (30-55) L D 09/05/23 10:30 RDW 13.6 % (12.1-15.1) 09/05/23 10:30 Plt Count 201 10^3/cmm (157-399) 09/05/23 10:30 MPV 10.5 fL (7.4-10.4) H 09/05/23 10:30 Neut % (Auto) 68.5 % 09/05/23 10:30 Lymph % (Auto) 22.4 % 09/05/23 10:30 [place] % (Auto) 6.8 % 09/05/23 10:30 Eos % (Auto) 1.5 % 09/05/23 10:30 Baso % (Auto) 0.5 % 09/05/23 10:30 Neut # (Auto) 4.12 10^3/uL (1.8-7.7) 09/05/23 10:30 Lymph # (Auto) 1.4 10^3/uL (0.8-4.8) 09/05/23 10:30 [place] # (Auto) 0.4 10^3/uL (0.2-0.9) 09/05/23 10:30 Eos # (Auto) 0.1 10^3/uL (0.0-0.8) 09/05/23 10:30 Baso # (Auto) 0.0 10^3/uL (0.0-0.1) 09/05/23 10:30 Nucleated RBC % (auto) 0 % 09/05/23 10:30 Nucleated RBCs # 0.0 /100WBC 09/05/23 10:30 PT 16.20 SECONDS (12.1-14.9) H 09/04/23 10:30 INR 1.26 (0.8-1.2) H 09/04/23 10:30 APTT 31.9 SECONDS (23.9-36.7) 09/04/23 10:30 Sodium 136 mmol/L (136-145) 09/05/23 10:30 Potassium 4.0 mmol/L (3.5-5.1) 09/05/23 10:30 Chloride 108 mmol/L (98-107) H 09/05/23 10:30 Carbon Dioxide 20 mmol/L (22-29) L 09/05/23 10:30 Anion Gap 12.0 (5-19) 09/05/23 10:30 BUN 5 mg/dL (6-20) L 09/05/23 10:30 Creatinine 0.7 mg/dL (0.5-0.9) 09/05/23 10:30 GFR Calculation 95.2 mL/min (90-130) 09/05/23 10:30 Glucose 68 mg/dL (65-115) 09/05/23 10:30 POC Glucose 76 mg/dL (70-110) 09/04/23 10:06 Calculated Osmolality 282 mOsm/kg (285-295) L 09/04/23 10:30 Lactate 1.2 mmol/L (0.5-2.2) 09/05/23 10:30 Calcium 8.2 mg/dL (8.5-10.5) L 09/05/23 10:30 Phosphorus 2.3 mg/dL (2.5-4.5) L 09/05/23 10:30 Total Bilirubin 0.3 mg/dL (0.15-1.2) 09/04/23 10:30 AST 13 U/L (0-32) 09/04/23 10:30 ALT 8 U/L (0-33) 09/04/23 10:30 Alkaline Phosphatase 42 U/L (35-105) 09/04/23 10:30 Total Protein 6.6 g/dL (6.6-8.7) 09/04/23 10:30 Albumin 3.7 g/dL (3.5-5.2) 09/05/23 10:30 Globulin 2.6 g/dL (1.3-4.6) 09/04/23 10:30 Triglycerides 43 mg/dL (0-150) 09/05/23 10:30 Cholesterol 102 mg/dL (0-200) 09/05/23 10:30 LDL Cholesterol, Calc 50 mg/dL (50-129) 09/05/23 10:30 HDL Cholesterol 43 mg/dL (60-100) L 09/05/23 10:30 LDL/HDL Ratio 1.16 RATIO (0.00-3.22) 09/05/23 10:30 Cholesterol/HDL Ratio 2.37 mg/dL (0.0-4.40) 09/05/23 10:30 Procalcitonin 0.03 ng/mL (0-0.5) 09/04/23 10:30 HCG, Qual Negative (Negative) 09/04/23 10:30 Urine Color Yellow (Yellow) 09/04/23 11:02 Urine Appearance Sl hazy (CLEAR) A 09/04/23 11:02 Urine pH 6 (5-7) 09/04/23 11:02 Ur Specific [place] 1.010 (1.005-1.030) 09/04/23 11:02 Urine Protein Neg (Negative) 09/04/23 11:02 Urine Glucose (UA) Norm (Normal) 09/04/23 11:02 Urine Ketones Negative (Negative) 09/04/23 11:02 Urine Blood Trace (Negative) H 09/04/23 11:02 Urine Nitrate Positive (Negative) H 09/04/23 11:02 Urine Bilirubin Neg (Negative) 09/04/23 11:02 Urine Urobilinogen Norm mg/dL (Negative) 09/04/23 11:02 Ur Leukocyte Esterase 1+ (Negative) H 09/04/23 11:02 Urine RBC 0-4 /hpf (0-2) H 09/04/23 11:02 Urine WBC 0-4 /hpf (0-5) H 09/04/23 11:02 Ur Squamous Epith Cells 0-4 /hpf (0-5) H 09/04/23 11:02 Amorphous Sediment Trace /hpf 09/04/23 11:02 Urine Bacteria Trace /hpf (NONE) 09/04/23 11:02 Urine Mucus 1+ /hpf 09/04/23 11:02 Urine Opiates Screen Negative ng/mL (Negative) 09/04/23 11:02 Ur Barbiturates Screen Negative ng/mL (Negative) 09/04/23 11:02 Ur Phencyclidine Scrn Negative ng/mL (Negative) 09/04/23 11:02 Ur Amphetamines Screen Negative ng/mL (Negative) 09/04/23 11:02 U Benzodiazepines Scrn Negative ng/mL (Negative) 09/04/23 11:02 Urine Cocaine Screen Negative ng/mL (Negative) 09/04/23 11:02 U Marijuana (THC) Screen Negative ng/mL (Negative) 09/04/23 11:02 Vitals Last Vital Signs Temp 98.5 F 09/05/23 10:21 Pulse 86 09/05/23 10:21 Resp 16 09/05/23 10:21 BP 102/59 09/05/23 10:21 Pulse Ox 96 09/05/23 10:21 O2 Del Method Room Air 09/05/23 10:21 Discharge Plan Discharge Patient Disposition: Home Condition: Stable Prescriptions: New atorvastatin [Lipitor] 20 mg tablet 20 mg PO DAILY Qty: 30 0RF topiramate [Topamax] 25 mg tablet 25 mg PO BID Qty: 60 0RF ciprofloxacin HCl 500 mg Tablet 500 mg PO BID@0900,2100 Qty: 4 0RF aspirin 81 mg tablet,delayed release (DR/EC) 81 mg PO DAILY Qty: 30 0RF Continued baclofen 10 mg tablet 10 mg PO BID PRN (Reason: Pain) Qty: 60 2RF buspirone 5 mg tablet 5 mg PO TID Qty: 60 11RF alprazolam 0.25 mg tablet 0.25 mg PO DAILY Qty: 30 2RF acetaminophen 325 mg capsule 325 mg PO Q4H PRN (Reason: fever or pain) Qty: 60 0RF docusate sodium [Colace] 100 mg capsule 100 mg PO BID Qty: 60 0RF ferrous sulfate [Iron (ferrous sulfate)] 325 mg (65 mg iron) tablet 325 mg PO BID Qty: 60 1RF trazodone 50 mg tablet 50 mg PO QPM Discharge Orders: Discharge Order (Routine); Ordered 09/05/23 Ordered By: Leo Daltno Referrals: Estefania Wilburn MD [Physician] - 2 weeks Romeo Kilgore DO [Primary Care Provider] - 4-7 days Patient Instructions: Opioid Safety Activity Restrictions/Additional Instructions: Take all medicine as prescribed Follow-up with your primary care provider 3 to 5 days, neurology 2 weeks Finish 2 more days of antibiotic as prescribed Discharge Attestations Time Spent in Discharge Care*: greater than 30 min (37) Quality Metrics Clinical Quality Measures [ No reported AMI, CVA or VTE this stay] Coding Level of Care Code 11390 Total time (in minutes) for Discharge: 37 Diagnoses Hemiparesis G81.90 Chronic migraine without aura, intractable, with status migrainosus G43.711
[2023-09-05 11:03] LABS: Estmated Average Glucose 88; Hemoglobin A1C 4.7 % (4.0-6.0)
--- NOTE | 2023-09-05 12:40 | PC.NURSE ---
reviewed with patient about discharge meds released int husbands care
== END 2023-09-05 12:42 | disposition home or self-care (01) ==
LOC: ER 11:04 → ICU 18:47
PROVIDERS: Internal Medicine; Admitting Provider Internal Medicine; Emergency Provider Family Medicine; PCP Family Medicine; Visit Provider Internal Medicine
DX: G81.91 Hemiplegia, unspecified affecting right dominant side (principal); G43.711 Chronic migraine without aura, intractable, with status migrainosus; Z90.5 Acquired absence of kidney; R41.0 Disorientation, unspecified; H53.8 Other visual disturbances
CPT/HCPCS: 36415; 36416; 70450; 70496; 70498; 70551; 71045; 80053; 80061; 80069; 80306; 81001; 82962; 83036; 83605; 84145; 84703; 85025; 85610; 85730; 87086; 92523; 92610; 93005; 93306; 96361; 96365; 97110; 97116; 97161; 97166; 99291; G0378; J3101; J3490; J7030; Q9967

== ENCOUNTER 2023-09-10 10:32 | Outpatient (RCR) | payer OTHER, SELFPAY | END 2023-09-18 23:59 | disposition home or self-care (01) | LOC: SPT 10:32 | PROVIDERS: PCP Family Medicine; Visit Provider Family Medicine | DX: M62.81 Muscle weakness (generalized) (principal); G81.90 Hemiplegia, unspecified affecting unspecified side; R29.898 Other symptoms and signs involving the musculoskeletal system; R26.89 Other abnormalities of gait and mobility | CPT/HCPCS: 97110; 97161; 97530 ==

== ENCOUNTER 2023-09-19 06:00 | Outpatient (RCR) | payer OTHER, SELFPAY | END 2023-10-19 23:59 | disposition home or self-care (01) | LOC: SPT 06:00 | PROVIDERS: PCP Family Medicine; Visit Provider Family Medicine | DX: G81.90 Hemiplegia, unspecified affecting unspecified side (principal); R29.898 Other symptoms and signs involving the musculoskeletal system; R26.89 Other abnormalities of gait and mobility | CPT/HCPCS: 97110; 97112 ==

== ENCOUNTER 2023-09-22 14:01 | Outpatient (CLI) | payer OTHER, SELFPAY ==
[2023-09-22 14:46] LABS: Basophils % 0.3 %; Eosinophils # 0.1 10^3/uL (0.0-0.8); Eosinophils % 1.2 %; Hematocrit 39.2 % (36-47); Lymphocytes # 1.9 10^3/uL (0.8-4.8); Lymphocytes % 21.4 %; Mean Corpuscular HGB Conc 32.4 g/dL (30-55); Mean Corpuscular Hemoglobin 27.9 pg (27-33); Mean Corpuscular Volume 86.2 fl (85-98); Monocytes # 0.3 10^3/uL (0.2-0.9); Monocytes % 3.8 %; Neutrophils # 6.29 10^3/uL (1.8-7.7); Nucleated Red Blood Cells % 0 %; Platelet Count 313 10^3/cmm (157-399); Red Blood Count 4.55 10^6/uL (3.85-5.65); Red Cell Distribution Width 14.5 % (12.1-15.1); White Blood Count 8.63 10^3/uL (3.29-11.43)
[2023-09-22 15:10] LABS: Alanine Aminotransferase 8 U/L (0-33); Albumin Level 4.5 g/dL (3.5-5.2); Alkaline Phosphatase 53 U/L (35-105); Anion Gap 16.5 (5-19); Aspartate Amino Transferase 13 U/L (0-32); Blood Urea Nitrogen 10 mg/dL (6-20); Calcium 9.1 mg/dL (8.5-10.5); Carbon Dioxide 20 mmol/L (22-29); Chloride 107 mmol/L (98-107); Creatine Phosphokinase 50 U/L (26-192); Globulin 3.2 g/dL (1.3-4.6); Glomerular Filtration Rate 51.1 mL/min (90-130); Glucose 63 mg/dL (65-115); Osmolality Calculated 287 mOsm/kg (285-295); Phosphorus 2.2 mg/dL (2.5-4.5); Potassium 3.5 mmol/L (3.5-5.1); Sodium 140 mmol/L (136-145); Total Bilirubin 0.4 mg/dL (0.15-1.2); Total Protein 7.7 g/dL (6.6-8.7); Uric Acid 5.4 mg/dL (2.4-5.7)
[2023-09-22 15:11] LABS: Creatinine Urine, Random 208 mg/dL (28-217); Microalbum Creatinine Ratio Ur 5 mg/dL (0-20); Microalbumin Random Urine 1 ug/dL (0-20)
[2023-09-22 15:15] LABS: Urine Appearance Clear (CLEAR); Urine Color Yellow (Yellow)
[2023-09-22 15:16] LABS: Bilirubin Urine Neg (Negative); Blood Urine Neg (Negative); Glucose Urine UA Norm (Normal); Ketones Urine 1+ (Negative); Leukocyte Esterase Urine Negative (Negative); Nitrate Urine Negative (Negative); Protein Urine Neg (Negative); Urobilinogen Urine Norm (Negative); pH Urine 5 (5-7)
[2023-09-22 15:17] LABS: Add Urine Culture? No; Bacteria Urine TRACE /hpf; WBC Urine 0-4 /hpf (0-5)
[2023-09-22 15:24] LABS: 25 Hydroxy Vitamin D 22 ng/mL (30-100); Vitamin B12 221 pg/mL (232-1245)
[2023-09-22 15:31] LABS: Folate Level 7.1 ng/mL (4.8-37.3)
[2023-09-23 00:35] LABS: Calcium 9.3 mg/dL (8.5-10.5)
[2023-09-23 00:42] LABS: Parathyroid Hormone 32.3 pg/mL (15-65)
[2023-09-23 15:34] LABS: Alternaria Alternata (M6) Ige <0.10 kU/L; Alternaria Class 0; Bermuda Class 0; Bermuda Grass (G2) Ige <0.10 kU/L; Cat Dander (E1) Ige <0.10 kU/L; Cat Dander Class 0; Common Ragweed (Short) (W1) Ig <0.10 kU/L; D. Farinae Class 0; Dermatophagoides Class 0; Dermatophagoides Farinae (D2) <0.10 kU/L; Dermatophagoides Pteronyssinus <0.10 kU/L; Dog Dander (E5) Ige <0.10 kU/L; Dog Dander Class 0; Elm (T8) Ige <0.10 kU/L; Elm Class 0; English Plantain (W9) Ige <0.10 kU/L; English Plantain Class 0; House Dust (Greer) (H1) Ige <0.10 kU/L; House Dust (Hollister- Stier) <0.10 kU/L; House Dust Class 0; Immunoglobulin E 22 kU/L (<OR=114); Johnson Grass (G10) Ige <0.10 kU/L; Johnson Grass Cl 0; June Grass Class 0; June Grass(Kentucky Blue) (G8) <0.10 kU/L; Lamb'S Quarters (Goose Foot) <0.10 kU/L; Lamb'S Quarters Class 0; Maple (Box Elder) (T1) Ige <0.10 kU/L; Maple Class 0; Meadow Fescue (G4) Ige <0.10 kU/L; Meadow Fescue Class 0; Mucor Racemosus Class 0; Oak (T7) Ige <0.10 kU/L; Oak Class 0; Orchard Grass (Cocksfoot) (G3) <0.10 kU/L; Penicillium Class 0; Penicillium Notatum (M1) Ige <0.10 kU/L; Perennial Rye Grass (G5) Ige <0.10 kU/L; Perennial Rye Grass Class 0; Ragweeed Class 0; Rough Marsh Elder (W16) Ige <0.10 kU/L; Rough Marsh Elder Class 0; Sweet Vernal Class 0; Sweet Vernal Grass (G1) Ige <0.10 kU/L; Timothy Grass (G6) Ige <0.10 kU/L; Timothy Grass Class 0
[2023-09-24 07:44] LABS: Lead Blood <1.0 mcg/dL (<3.5)
[2023-09-25 15:28] LABS: Arsenic Blood <10 mcg/L (<23); Mercury Blood <5 mcg/L (<OR=10)
[2023-09-25 20:49] LABS: Dopamine Level 23 pg/mL; Epinephrine Level 21 pg/mL; Norepinephrine Level 879 pg/mL; Total Catecholamines 923 pg/mL
[2023-09-26 15:40] LABS: Aspergillus Fumigatus, Igg Ab, 25.1 mg/L (<=102); Vitamin B1 (Thiamine),Blood 91 nmol/L (78-185)
== END 2023-09-22 14:02 | disposition home or self-care (01) ==
LOC: LAB 14:02
PROVIDERS: PCP Family Medicine; Visit Provider Family Medicine
DX: E83.42 Hypomagnesemia (principal); R26.89 Other abnormalities of gait and mobility; G81.90 Hemiplegia, unspecified affecting unspecified side; G90.A Postural orthostatic tachycardia syndrome [POTS]; I73.89 Other specified peripheral vascular diseases; Q60.0 Renal agenesis, unilateral; R20.0 Anesthesia of skin; E83.52 Hypercalcemia
CPT/HCPCS: 80053; 81001; 82044; 82175; 82306; 82310; 82384; 82533; 82542; 82550; 82607; 82746; 82785; 83090; 83525; 83655; 83735; 83825; 83921; 83970; 84100; 84425; 84550; 85025; 86003; 87086

== ENCOUNTER → 2023-09-25 09:10 | Outpatient (BNVA) | payer OTHER, SELFPAY | PROVIDERS: PCP Family Medicine; Visit Provider Family Medicine | DX: E16.1 Other hypoglycemia (principal) | CPT/HCPCS: 82010; 83525; 84206; 84305; 84681; 86003; 86337 ==

== ENCOUNTER 2023-10-20 06:00 | Outpatient (RCR) | payer OTHER, SELFPAY | END 2023-10-29 23:59 | disposition home or self-care (01) | LOC: SPT 06:00 | PROVIDERS: PCP Family Medicine; Visit Provider Family Medicine | DX: M62.81 Muscle weakness (generalized) (principal) | CPT/HCPCS: 97110 ==

== ENCOUNTER → 2023-10-31 12:38 | Outpatient (BNVA) | payer OTHER, SELFPAY | PROVIDERS: PCP Family Medicine; Visit Provider Family Medicine | DX: R79.89 Other specified abnormal findings of blood chemistry (principal); E83.39 Other disorders of phosphorus metabolism; E87.6 Hypokalemia; E55.9 Vitamin D deficiency, unspecified | CPT/HCPCS: 80048; 82306; 82607; 84100 ==

== ENCOUNTER → 2023-11-21 16:00 | Outpatient (BNVA) | payer OTHER, SELFPAY | PROVIDERS: PCP Family Medicine | DX: N39.0 Urinary tract infection, site not specified (principal); R30.0 Dysuria; N93.9 Abnormal uterine and vaginal bleeding, unspecified | CPT/HCPCS: 81000; 87077; 87086; 87184 ==

== ENCOUNTER → 2024-04-20 15:37 | Outpatient (BNVA) | payer OTHER, SELFPAY | PROVIDERS: PCP Family Medicine | DX: R79.89 Other specified abnormal findings of blood chemistry (principal); F41.1 Generalized anxiety disorder; F41.0 Panic disorder [episodic paroxysmal anxiety]; E16.2 Hypoglycemia, unspecified; E55.9 Vitamin D deficiency, unspecified | CPT/HCPCS: 80053; 82306; 82607; 82746; 83540; 84443; 85025 ==

== ENCOUNTER 2024-07-04 13:39 | Emergency (ER) | payer OTHER, SELFPAY ==
[2024-07-04 14:03] VITALS: BP 125/77; PULSE 91; RESP 15; TEMP 36.8; O2SAT 97; BMI 20.1
--- NOTE | 2024-07-04 14:37 | ED_ITS ---
HPI - Abdominal Pain 2 General: Chief Complaint: Abdominal Pain Stated Complaint: right lower stomach pain Time Seen by Provider: 07/04/24 14:36 History of Present Illness: 34-year-old female comes in today with l ower abdominal pain x 2 days. Patient reports no vomiting but does have nausea. Patient reports pain is controlled with rest. Patient has a history of hysterectomy, , right renal hydronephrosis, congenital absence of left kidney. Patient reports no fever. Patient is on cephalexin at this time for prophylaxis for urinary tract infections. Patient reports no vomiting or diarrhea. Patient appears nontoxic. Patient appears chronically ill. Patient has a history of CVA x 1 year. Patient is on Ajovy for migraine headaches. Related Data Previous Rx's Medication Instructions Recorded acetaminophen 325 mg capsule 325 mg PO Q4H PRN fever or pain 06/18/23 #60 caps ondansetron 4 mg disintegrating 4 mg PO Q6H PRN nausea and 09/30/23 tablet vomiting #30 tabs aspirin 81 mg tablet,delayed 81 mg PO DAILY #90 tabs 10/08/23 release baclofen 10 mg tablet 10 mg PO DAILY PRN muscle spasm 10/22/23 #30 tabs trazodone 50 mg tablet 75 mg (1.5 x 50 mg) PO QPM #135 12/17/23 tabs fremanezumab-vfrm 225 mg/1.5 mL See Rx Instructions .Route 03/29/24 subcutaneous auto-injector (Ajovy) .COMPLEX #1.5 mL alprazolam 0.25 mg tablet 0.25 mg PO DAILY #30 tabs 05/17/24 propranolol 10 mg tablet 10 mg PO DAILY #90 tabs 05/18/24 cephalexin 250 mg tablet 250 mg PO DAILY #90 tabs 06/18/24 fludrocortisone 0.1 mg tablet 0.1 mg PO BID #60 tabs 06/18/24 Allergies Allergy/AdvReac Type Severity Reaction Status Date / Time Penicillins Allergy Severe ALGY-Anaphy Verified 12/10/23 15:00 laxis chocolate flavor Allergy Intermediate ADR-Migrain Verified 12/10/23 15:00 e codeine Allergy Intermediate ALGY-Hives Verified 12/10/23 15:00 Beef Containing Products Allergy ADR-Abdominal Verified 12/10/23 15:00 Pain peanut Allergy ADR-Abdominal Verified 12/10/23 15:00 Pain barly Allergy ADR-Abdominal Uncoded 12/10/23 15:00 Pain Review of Systems 2 General: Reports: 10 or more systems reviewed and unremarkable except in HPI and below GI: Reports: abdominal pain PFSH ED 2 PFSH: Medical History 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 Performed by [facility] at [facility]. Benign pathology. Bicornuate uterus,vaginal septum, multiple pelvic adhesions present. H/O bilateral salpingectomy (~2014) History of D&C History of 1)- 2008 breech presentation 2)- 2014 repeat with tubal History of renal stent several stents--- last procedure was in [place] 12/04/22 History of nephrostomy Family History Mother Healthy adult Father Lung cancer Family/Other Breast cancer Maternal great aunt Ovarian cancer Maternal aunt Grandmother Breast cancer maternal maternal great Denies family history of Colon cancer Diabetes Heart disease Cancer Hypertension Uterine cancer Thyroid disease Stroke Hyperchloremia Social History Smoking and tobacco/nicotine status: never used tobacco/nicotine Alcohol intake: never Physical Exam 2 Const: COMMON NORMALS: alert HENMT: COMMON NORMALS: normocephalic HEAD & SCALP: normocephalic Neck/C-Spine: COMMON NORMALS: full ROM Resp: COMMON NORMALS: normal respiratory effort and clear to auscultation bilaterally AUSCULTATION: clear to auscultation bilaterally Cardio: COMMON NORMALS: regular rate RATE: regular rate GI: COMMON NORMALS: Soft to palpation AUSCULTATION: Yes normoactive bowel sounds PALPATION: Yes Soft to palpation and Yes Tenderness to palpation present (GI) (Generalized) Extremity: COMMON NORMALS: normal to inspection Neuro: SENSORIUM/ORIENTATION: Yes alert Skin: COMMON NORMALS: turgor normal GENERAL SKIN EXAM: turgor normal Course 2 Vital Signs: Vital signs: Vital Signs Temperature 98.2 F 07/04/24 14:03 Pulse Rate 68 07/04/24 16:17 Respiratory Rate 15 07/04/24 14:03 Blood Pressure 101/76 07/04/24 16:17 Pulse Oximetry 100 07/04/24 16:17 Oxygen Delivery Me thod Room Air 07/04/24 16:17 MDM - Abdominal Pain Medical Decision Making 34-year-old female comes in today for complaints of lower abdominal pain. On exam patient appears mildly unwell. Patient appears in mild to moderate pain. Abdomen soft with generalized tenderness. Bowel sounds are normal. Vital signs are normal. Differential diagnosis includes urinary tract infection, renal calculi, hydronephrosis, appendicitis, surgical adhesions. CBC was unremarkable. CMP was normal. Urinalysis was unremarkable. CT of the abdomen pelvis noted today 3.6 cm cystic lesion in the left adnexa, interval hysterectomy, and mild enhancement thickening in the right ureter which may represent mild ureteritis. Pain I believe is more likely from the ovarian cyst/cystic lesion and recommend follow-up with [facility] for further evaluation and treatment. Patient reports understanding agreed to plan. Lab Data 07/04/24 14:54 07/04/24 14:54 Labs/Radiology: Radiology Impressions Abdomen/Pelvis CT 07/04/24 14:40 IMPRESSION: 1. Mild enhancement and thickening of the right ureter, which may represent mild ureteritis. There is no right-sided hydronephrosis. 2. Left adnexal 3.6 cm cystic lesion, as well as other subcentimeter cysts. Consider correlation with pelvic ultrasound for further characterization. 3. Interval hysterectomy. Laboratory Results WBC 6.82 10^3/uL (3.29-11.43) 07/04/24 14:54 RBC 4.30 10^6/uL (3.85-5.65) 07/04/24 14:54 Hgb 13.00 g/dL (11.27-16.99) 07/04/24 14:54 Hct 40.2 % (36-47) 07/04/24 14:54 MCV 93.5 fl (85-98) 07/04/24 14:54 MCH 30.2 pg (27-33) 07/04/24 14:54 MCHC 32.3 g/dL (30-55) 07/04/24 14:54 RDW 12.4 % (12.1-15.1) 07/04/24 14:54 Plt Count 230 10^3/cmm (157-399) 07/04/24 14:54 MPV 10.7 fL (7.4-10.4) H 07/04/24 14:54 Neut % (Auto) 67.2 % 07/04/24 14:54 Lymph % (Auto) 24.2 % 07/04/24 14:54 [place] % (Auto) 6.7 % 07/04/24 14:54 Eos % (Auto) 1.2 % 07/04/24 14:54 Baso % (Auto) 0.4 % 07/04/24 14:54 Neut # (Auto) 4.58 10^3/uL (1.8-7.7) 07/04/24 14:54 Lymph # (Auto) 1.7 10^3/uL (0.8-4.8) 07/04/24 14:54 [place] # (Auto) 0.5 10^3/uL (0.2-0.9) 07/04/24 14:54 Eos # (Auto) 0.1 10^3/uL (0.0-0.8) 07/04/24 14:54 Baso # (Auto) 0.0 10^3/uL (0.0-0.1) 07/04/24 14:54 Nucleated RBC % (auto) 0 % 07/04/24 14:54 Nucleated RBCs # 0.0 /100WBC 07/04/24 14:54 Sodium 139 mmol/L (136-145) 07/04/24 14:54 Potassium 3.6 mmol/L (3.5-5.1) 07/04/24 14:54 Chloride 104 mmol/L (98-107) 07/04/24 14:54 Carbon Dioxide 25 mmol/L (22-29) 07/04/24 14:54 Anion Gap 13.6 (5-19) 07/04/24 14:54 BUN 10 mg/dL (6-20) 07/04/24 14:54 Creatinine 1.0 mg/dL (0.5-0.9) H 07/04/24 14:54 GFR Calculation 62.7 mL/min (90-130) L 07/04/24 14:54 Glucose 72 mg/dL (65-115) 07/04/24 14:54 Calculated Osmolality 286 mOsm/kg (285-295) 07/04/24 14:54 Calcium 8.6 mg/dL (8.5-10.5) 07/04/24 14:54 Total Bilirubin 0.3 mg/dL (0.15-1.2) 07/04/24 14:54 AST 19 U/L (0-32) 07/04/24 14:54 ALT 11 U/L (0-33) 07/04/24 14:54 Alkaline Phosphatase 59 U/L (35-105) 07/04/24 14:54 Total Protein 7.3 g/dL (6.6-8.7) 07/04/24 14:54 Albumin 4.4 g/dL (3.5-5.2) 07/04/24 14:54 Globulin 2.9 g/dL (1.3-4.6) 07/04/24 14:54 Lipase 29 U/L (13-60) 07/04/24 14:54 Urine Color Yellow (Yellow) 07/04/24 16:11 Urine Appearance Clear (CLEAR) 07/04/24 16:11 Urine pH 7 (5-7) 07/04/24 16:11 Ur Specific [place] 1.005 (1.005-1.030) 07/04/24 16:11 Urine Protein Trace (Negative) 07/04/24 16:11 Urine Glucose (UA) Norm (Normal) 07/04/24 16:11 Urine Ketones Negative (Negative) 07/04/24 16:11 Urine Blood Neg (Negative) 07/04/24 16:11 Urine Nitrate Negative (Negative) 07/04/24 16:11 Urine Bilirubin Neg (Negative) 07/04/24 16:11 Urine Urobilinogen Norm mg/dL (Negative) 07/04/24 16:11 Ur Leukocyte Esterase Trace (Negative) H 07/04/24 16:11 Urine RBC None /hpf (0-2) 07/04/24 16:11 Urine WBC 0-4 /hpf (0-5) H 07/04/24 16:11 Ur Squamous Epith Cells None /hpf (0-5) 07/04/24 16:11 Amorphous Sediment Not Reportable 07/04/24 16:11 Urine Bacteria None /hpf (NONE) 07/04/24 16:11 All radiology interpretation(s) finalized by discharge Discharge Plan Discharge Patient Disposition: Home Clinical Impression: Ovarian cyst Qualifiers: Laterality: left Qualified Code(s): N83.202 - Unspecified ovarian cyst, left side Abdominal pain Qualifiers: Abdominal location: periumbilical Qualified Code(s): R10.33 - Periumbilical pain Condition: Stable Prescriptions: No Action ondansetron 4 mg tablet,disintegrating 4 mg PO Q6H PRN (Reason: nausea and vomiting) Qty: 30 2RF aspirin 81 mg tablet,delayed release (DR/EC) 81 mg PO DAILY Qty: 90 3RF baclofen 10 mg tablet 10 mg PO DAILY PRN (Reason: muscle spasm) Qty: 30 5RF trazodone 50 mg tablet 75 mg PO QPM Qty: 135 2RF Ajovy Autoinjector 225 mg/1.5 mL auto-injector See Rx Instructions .ROUTE .COMPLEX Qty: 1.5 4RF Dose Instruction: Inject 225mg (1.5ml) subcutaneously ONCE monthly Rx Instructions: Inject 225mg (1.5ml) subcutaneously ONCE monthly alprazolam 0.25 mg tablet 0.25 mg PO DAILY Qty: 30 2RF propranolol 10 mg tablet 10 mg PO DAILY Qty: 90 3RF fludrocortisone 0.1 mg tablet 0.1 mg PO BID Qty: 60 3RF cephalexin 250 mg tablet 250 mg PO DAILY Qty: 90 3RF acetaminophen 325 mg capsule 325 mg PO Q4H PRN (Reason: fever or pain) Qty: 60 0RF Discharge Orders: Discharge ED (Routine); Ordered 07/04/24 Ordered By: Gil Swain Referrals: Romeo Kilgore DO [Primary Care Provider] - Patient Instructions: Abdominal Pain (ED), Opioid Safety, Pain Management Coding Level of Care Code ED Wildlife Ecologist for Peggy Shukla
--- NOTE | 2024-07-04 14:40 | CTR_ITS ---
PROCEDURE INFORMATION: Exam: CT Abdomen And Pelvis With Contrast Exam date and time: 07/04/2024 2:58 PM Age: 34 years old Clinical indication: Abdominal pain; Localized; Right lower quadrant (rlq); Prior surgery; Surgery date: 6+ months; Surgery type: Hysto, kidney; Additional info: Rlq pain TECHNIQUE: Imaging protocol: Computed tomography of the abdomen and pelvis with contrast. Radiation optimization: All CT scans at this facility use at least one of these dose optimization techniques: automated exposure control; mA and/or kV adjustment per patient size (includes targeted exams where dose is matched to clinical indication); or iterative reconstruction. Contrast material: OMNI 350; Contrast volume: 75 ml; Contrast route: INTRAVENOUS (IV); COMPARISON: CT kidney stone [id number] 08/10/2022 12:05 AM RADIATION DOSE METRICS: Total DLP (mGy-cm): 338.93 FINDINGS: Lungs: The visualized portions of the lungs are unremarkable. Liver: The liver is unremarkable. Gallbladder and biliary ducts: The gallbladder is normal. No biliary dilation. Pancreas: The pancreas is unremarkable. Spleen: The spleen is unremarkable. Adrenal glands: The adrenal glands are unremarkable. Kidneys and ureters: The left kidney is surgically absent. There is a right-sided extrarenal pelvis. There has been interval resolution of previously noted right-sided hydronephrosis, with interval removal of prior nephroureteral stent. There is mild prominence of the right renal pelvis, with normal caliber of the ureter. Mild ureteral mucosal enhancement. Stomach and bowel: There is no bowel wall thickening. No bowel obstruction. Appendix: Appendix is not identified. No findings to suggest acute appendicitis. Intraperitoneal space: No significant peritoneal free fluid. No free peritoneal air. Vasculature: The vasculature is unremarkable. No aneurysm. Lymph nodes: No enlarged lymph nodes by size criteria. Urinary bladder: The bladder is distended. Reproductive: Interval hysterectomy. 2.6 x 3.6 cm cystic lesion within the left adnexal region, as well as other subcentimeter cysts. Bones/joints: The spine demonstrates mild degenerative changes at multiple levels. Soft tissues: Soft tissues are unremarkable as visualized. CT/CT abdomen pelvis w con* [id number] IMPRESSION: 1. Mild enhancement and thickening of the right ureter, which may represent mild ureteritis. There is no right-sided hydronephrosis. 2. Left adnexal 3.6 cm cystic lesion, as well as other subcentimeter cysts. Consider correlation with pelvic ultrasound for further characterization. 3. Interval hysterectomy.
[2024-07-04 15:03] LABS: Basophils % 0.4 %; Eosinophils # 0.1 10^3/uL (0.0-0.8); Eosinophils % 1.2 %; Hematocrit 40.2 % (36-47); Lymphocytes # 1.7 10^3/uL (0.8-4.8); Lymphocytes % 24.2 %; Mean Corpuscular HGB Conc 32.3 g/dL (30-55); Mean Corpuscular Hemoglobin 30.2 pg (27-33); Mean Corpuscular Volume 93.5 fl (85-98); Mean Platelet Volume 10.7 fL (7.4-10.4); Monocytes # 0.5 10^3/uL (0.2-0.9); Monocytes % 6.7 %; Neutrophils # 4.58 10^3/uL (1.8-7.7); Neutrophils % 67.2 %; Nucleated Red Blood Cells % 0 %; Platelet Count 230 10^3/cmm (157-399); Red Cell Distribution Width 12.4 % (12.1-15.1); White Blood Count 6.82 10^3/uL (3.29-11.43)
[2024-07-04] MEDS: iohexol 350 mg/mL 500 mL Btl (per mL) IV (15:13)
[2024-07-04 15:19] LABS: Alanine Aminotransferase 11 U/L (0-33); Albumin Level 4.4 g/dL (3.5-5.2); Alkaline Phosphatase 59 U/L (35-105); Anion Gap 13.6 (5-19); Aspartate Amino Transferase 19 U/L (0-32); Blood Urea Nitrogen 10 mg/dL (6-20); Calcium 8.6 mg/dL (8.5-10.5); Carbon Dioxide 25 mmol/L (22-29); Chloride 104 mmol/L (98-107); Globulin 2.9 g/dL (1.3-4.6); Glomerular Filtration Rate 62.7 mL/min (90-130); Glucose 72 mg/dL (65-115); Lipase 29 U/L (13-60); Osmolality Calculated 286 mOsm/kg (285-295); Potassium 3.6 mmol/L (3.5-5.1); Sodium 139 mmol/L (136-145); Total Bilirubin 0.3 mg/dL (0.15-1.2); Total Protein 7.3 g/dL (6.6-8.7)
[2024-07-04 15:24] LABS: Creatinine Clr Calc Pharmacy 71.5298
[2024-07-04 16:17] VITALS: BP 101/76; PULSE 68; O2SAT 100
[2024-07-04 16:22] LABS: Add Urine Culture? No; Add Urine Microscopic? YES; Bilirubin Urine Neg (Negative); Blood Urine Neg (Negative); Glucose Urine UA Norm (Normal); Ketones Urine Negative (Negative); Leukocyte Esterase Urine Trace (Negative); Nitrate Urine Negative (Negative); Protein Urine Trace (Negative); Specific Gravity, Urine 1.005 (1.005-1.030); Urine Appearance Clear (CLEAR); Urine Color Yellow (Yellow); Urobilinogen Urine Norm (Negative); WBC Urine 0-4 /hpf (0-5); pH Urine 7 (5-7)
[2024-07-04 16:43] VITALS: BP 100/58; PULSE 66; O2SAT 98
--- NOTE | 2024-07-05 08:19 | DCPLANNER ---
messaged [facility] for er f/u appt
== END 2024-07-04 16:46 | disposition home or self-care (01) ==
PROVIDERS: Emergency Medicine; Emergency Provider Nurse Practitioner Family; PCP Family Medicine
DX: N83.202 Unspecified ovarian cyst, left side (principal); R10.33 Periumbilical pain; Z79.82 Long term (current) use of aspirin
CPT/HCPCS: 74177; 80053; 81001; 83690; 85025; 99285

== ENCOUNTER 2025-04-06 14:12 | Outpatient (CLI) | payer SELFPAY ==
[2025-04-06 14:48] LABS: Basophils % 0.3 %; Eosinophils # 0.1 10^3/uL (0.0-0.8); Eosinophils % 1.2 %; Hematocrit 36.4 % (36-47); Lymphocytes # 1.8 10^3/uL (0.8-4.8); Lymphocytes % 27.5 %; Mean Corpuscular HGB Conc 33.2 g/dL (30-55); Mean Corpuscular Hemoglobin 29.7 pg (27-33); Mean Corpuscular Volume 89.2 fl (85-98); Mean Platelet Volume 10.5 fL (7.4-10.4); Monocytes # 0.3 10^3/uL (0.2-0.9); Monocytes % 4.7 %; Neutrophils % 66.1 %; Nucleated Red Blood Cells % 0 %; Platelet Count 234 10^3/cmm (157-399); Red Blood Count 4.08 10^6/uL (3.85-5.65); Red Cell Distribution Width 12.4 % (12.1-15.1); White Blood Count 6.65 10^3/uL (3.29-11.43)
[2025-04-06 15:02] LABS: Alanine Aminotransferase 9 U/L (0-33); Albumin Level 4.3 g/dL (3.5-5.2); Alkaline Phosphatase 48 U/L (35-105); Aspartate Amino Transferase 13 U/L (0-32); Blood Urea Nitrogen 8 mg/dL (6-20); Calcium 9.3 mg/dL (8.5-10.5); Carbon Dioxide 25 mmol/L (22-29); Chloride 102 mmol/L (98-107); Globulin 2.7 g/dL (1.3-4.6); Glomerular Filtration Rate 70.5 mL/min (90-130); Glucose 69 mg/dL (65-115); Osmolality Calculated 281 mOsm/kg (285-295); Sodium 137 mmol/L (136-145); Total Bilirubin 0.3 mg/dL (0.15-1.2)
[2025-04-06 15:04] LABS: INR 1.12 (0.8-1.2); Partial Thromboplastin Time 31.3 SECONDS (23.9-36.7)
[2025-04-06 15:16] LABS: Estmated Average Glucose 100; Hemoglobin A1C 5.1 % (4.0-6.0)
== END 2025-04-06 14:13 | disposition home or self-care (01) ==
PROVIDERS: PCP Family Medicine; Visit Provider Family Medicine
DX: Z01.818 Encounter for other preprocedural examination (principal)
CPT/HCPCS: 36415; 80053; 83036; 85025; 85610; 85730

== ENCOUNTER 2025-06-22 07:47 | Outpatient (CLI) | payer SELFPAY ==
[2025-06-22 08:58] LABS: Hematocrit 36.7 % (36-47); Hemoglobin 12.20 g/dL (11.27-16.99); Mean Corpuscular HGB Conc 33.2 g/dL (30-55); Mean Corpuscular Hemoglobin 30.3 pg (27-33); Mean Corpuscular Volume 91.1 fl (85-98); Nucleated Red Blood Cells % 0 %; Platelet Count 223 10^3/cmm (157-399); Red Blood Count 4.03 10^6/uL (3.85-5.65); White Blood Count 4.24 10^3/uL (3.29-11.43)
[2025-06-22 09:41] LABS: Alanine Aminotransferase 23 U/L (0-33); Albumin Level 4.3 g/dL (3.5-5.2); Alkaline Phosphatase 44 U/L (35-105); Anion Gap 13.6 (5-19); Aspartate Amino Transferase 14 U/L (0-32); Blood Urea Nitrogen 12 mg/dL (6-20); CRP High Sensitivity Cardiac < 0.150 mg/dL (0.0-0.3); Calcium 8.8 mg/dL (8.5-10.5); Carbon Dioxide 25 mmol/L (22-29); Chloride 103 mmol/L (98-107); Globulin 2.8 g/dL (1.3-4.6); Glucose 84 mg/dL (65-115); Iron 67 ug/dL (37-145); Osmolality Calculated 285 mOsm/kg (285-295); Potassium 3.6 mmol/L (3.5-5.1); Sodium 138 mmol/L (136-145); Thyroid Stimulating Hormone 1.24 uIU/mL (0.27-4.20); Total Iron Binding Capacity 261 mcg/dl; Total Protein 7.1 g/dL (6.6-8.7); Unsaturated Iron Binding 194 ug/dL (112-347); Vitamin B12 393 pg/mL (232-1245)
== END 2025-06-22 07:48 | disposition home or self-care (01) ==
PROVIDERS: PCP Family Medicine; Visit Provider Family Medicine
DX: R79.89 Other specified abnormal findings of blood chemistry (principal); I77.6 Arteritis, unspecified; E55.9 Vitamin D deficiency, unspecified; R53.82 Chronic fatigue, unspecified; G62.9 Polyneuropathy, unspecified; E89.40 Asymptomatic postprocedural ovarian failure
CPT/HCPCS: 36415; 80053; 82533; 82607; 82672; 82746; 83090; 83540; 83550; 84144; 84443; 85025; 86141